=== PATIENT | female | born 1945 | race Caucasian/White ===

== ENCOUNTER → 2017-03-01 | Day surgery (SDC) | payer MEDICARE, OTHER ==
[2017-02-27 14:40] VITALS: BMI 26.8
[~2017-03-01] MED LIST: LACTATED RINGERS 1,000 ML IV SCH; LIDOCAINE 1% 20 ML VIAL (10MG/ML) FOR IV START INTRADERMA PRN; LIDOCAINE 1% INJ 10MG/ML (20 ML MDV) ONE; PROPOFOL 10 MG/ML 20 ML VIAL IV ONE
[2017-03-01 10:41] VITALS: RESP 16; TEMP 98.7
--- NOTE | 2017-03-01 11:35 | P.PCN ---
Date of Procedure: 03/01/17 Procedure(s) Performed: Brief history: Patient is a pleasant 71-year-old white female, scheduled for an elective upper endoscopy as well as colonoscopy as a part of evaluation of iron deficiency anemia. She has intermittent rectal bleeding and chronic severe constipation. Procedure performed: Esophagogastroduodenoscopy with biopsy Colonoscopy Preoperative diagnosis: Iron deficiency anemia and rectal bleeding Anesthesia: MAC Procedure: After informed consent was obtained from the patient was brought into the endoscopy unit and IV sedation was administered by anesthesia under continuous monitoring. Initially upper endoscopy was done. The Olympus GF 160 video endoscope was inserted inserted into the mouth and esophagus intubated without any difficulty and was gradually advanced into the stomach and duodenum and carefully examined. The bulb and second part of the duodenum appeared normal. The scope was then withdrawn into the stomach adequately insufflated with air and upon careful examination the pylorus appeared slightly deformed. In the antrum there was a 2 cm deep ulceration identified which was biopsied. The body , cardia and fundus appeared normal. The scope was then withdrawn into the esophagus. The GE junction was located at 40 cm to the incisors. It appeared regular with no erythema erosions or ulcerations. Rest of the esophagus appeared normal. Patient tolerated the procedure well. At this time the patient continued to remain sedation. Initial digital rectal examination was normal. Olympus CF 160 video colonoscope was then inserted into the rectum and gradually advanced to the cecum without any difficulty. Careful examination was performed as the scope was gradually being withdrawn. The prep was excellent. The cecum, ascending colon, transverse colon, descending colon, sigmoid colon and rectum appeared normal. At the sigmoid diverticulosis seen. Retroflexion was performed in the rectum and grade 2 prolapsing internal hemorrhoids were noted. Patient tolerated the procedure well. Impression: 1. Upper endoscopy revealed 2 cm deep antral ulcer with slightly deformed pylorus status post biopsy. 2. Colonoscopy revealed grade 2 prolapsing internal hemorrhoids and scattered sigmoid tic close is Recommendations: Findings of this examination were discussed with the patient as well as her family. She was advised to follow with the biopsy results. She was advised to increase the Prilosec to 20 mg twice daily and avoid NSAIDs. She will also continue the high-fiber diet and avoid straining and constipation.
[2017-03-01 12:01] VITALS: BP 117/73; PULSE 65
== END ==
LOC: ORWHC2ENDO 09:50
PROVIDERS: ATTEND Internal Medicine Gastroenterology
DX: K25.9 Gastric ulcer, unspecified as acute or chronic, without hemorrhage or perforation (principal); K29.50 Unspecified chronic gastritis without bleeding; K57.30 Diverticulosis of large intestine without perforation or abscess without bleeding; K64.8 Other hemorrhoids; I10 Essential (primary) hypertension; E78.5 Hyperlipidemia, unspecified; G47.33 Obstructive sleep apnea (adult) (pediatric); Z99.89 Dependence on other enabling machines and devices; Z87.891 Personal history of nicotine dependence; G80.9 Cerebral palsy, unspecified; M41.9 Scoliosis, unspecified; Z79.891 Long term (current) use of opiate analgesic; Z79.899 Other long term (current) drug therapy; Z88.8 Allergy status to other drugs, medicaments and biological substances
CPT/HCPCS: 88305; 88342; 45378; 43239; J2001; J2704

== ENCOUNTER → 2018-08-22 | Outpatient (CLI) | payer MEDICARE, OTHER ==
--- NOTE | 2018-08-25 13:48 | MM ---
Reason for exam: screening (asymptomatic). Last mammogram was performed 1 year and 10 months ago. History: Patient is postmenopausal and is nulliparous. Family history of breast cancer in sister at age 66. Physical Findings: A clinical breast exam by your physician is recommended on an annual basis and results should be correlated with mammographic findings. MG 3D Screening Mammo W/Cad Bilateral CC and MLO view(s) were taken. Prior study comparison: October 08, 2016, right breast MG 3d diag mammo w/cad RT. March 29, 2016, right breast MG work up mamm w CAD RT. There are scattered fibroglandular densities. There is a new 5mm group of right calcifications in the central inner breast at anterior depth. No suspicious abnormality on left. ASSESSMENT: Incomplete: need additional imaging evaluation, BI-RAD 0 RECOMMENDATION: Special view mammogram of the right breast. [facility] will attempt to contact patient to return for supplemental views.
== END | disposition home or self-care (01) ==
LOC: RADMAMWWP 13:03
PROVIDERS: ATTEND Internal Medicine
DX: Z12.31 Encounter for screening mammogram for malignant neoplasm of breast (principal)
CPT/HCPCS: 77063; 77067

== ENCOUNTER → 2018-08-29 | Outpatient (CLI) | payer MEDICARE, OTHER ==
--- NOTE | 2018-09-01 09:56 | MM ---
Reason for exam: additional evaluation requested from abnormal screening. Last mammogram was performed less than 1 month ago. History: Patient is postmenopausal and is nulliparous. Family history of breast cancer in sister at age 66. Physical Findings: Nurse did not find any significant physical abnormalities on exam. MG 3D Work Up W/Cad RT CC with magnification and LM view(s) were taken of the right breast. Prior study comparison: August 22, 2018, bilateral MG 3d screening mammo w/cad. October 08, 2016, right breast MG 3d diag mammo w/cad RT. There are indeterminate microcalcifications in the right breast. Biopsy is recommended. These results were verbally communicated with the patient and result sheet given to the patient on 08/29/18. ASSESSMENT: Suspicious, BI-RAD 4 RECOMMENDATION: Stereotactic core biopsy of the right breast. Called Dr. Padilla with mammographic findings and has scheduled an appointment for the patient for 10/03/18 at 10:[address] Moreira. Biopsy scheduled for 10/09/18 at 8:00. PRELIMINARY REPORT CALLED AND FAXED TO DR. MOREIRA ON 08/29/18.
== END | disposition home or self-care (01) ==
LOC: RADMAMWWP 14:25
PROVIDERS: ATTEND Internal Medicine
DX: R92.8 Other abnormal and inconclusive findings on diagnostic imaging of breast (principal)
CPT/HCPCS: 77065; G0279; 77061

== ENCOUNTER → 2018-09-19 | Outpatient (CLI) | payer MEDICARE, OTHER ==
[~2018-09-19] MED LIST changes: +DENOSUMAB 60 MG/ML 1 ML SYRINGE SQ ONE; -LACTATED RINGERS 1,000 ML IV SCH; -LIDOCAINE 1% 20 ML VIAL (10MG/ML) FOR IV START INTRADERMA PRN; -LIDOCAINE 1% INJ 10MG/ML (20 ML MDV) ONE; -PROPOFOL 10 MG/ML 20 ML VIAL IV ONE
[2018-09-19 13:11] VITALS: BP 161/85; PULSE 56; RESP 16; TEMP 97.6
== END ==
LOC: PROCWHC3 12:53
PROVIDERS: ATTEND Internal Medicine
DX: M81.0 Age-related osteoporosis without current pathological fracture (principal)
CPT/HCPCS: 96372; J0897

== ENCOUNTER → 2018-10-03 | Outpatient (CLI) | payer MEDICARE, OTHER ==
[2018-10-03 11:02] VITALS: BP 140/81; PULSE 60; RESP 18; TEMP 97.4; BMI 25.5
--- NOTE | 2018-10-03 11:36 | P.GSHP ---
History of Present Illness H&P Date: 10/03/18 Chief Complaint: abnormal right breast mamogram Shantel is a 72-year-old white female who presents with a mammographic abnormality noted in her right breast. Mammogram was done on 10181111. A new 5 mm group of right calcifications in the central inner breast were noted. No suspicious abnormalities on the left breast were noted. Additional views of the right breast were obtained which determined that the microcalcifications were indeterminant and a stereotactic core biopsy was recommended. The patient does not feel anything of concern in her breasts. The patient has no history of any trauma or infection to the breasts. Family history: 1. Breast cancer in a sister at age 66 Hormonal History: menarche: 12 : none menopause: 31 BCP: none hormones: none Past surgical history: Tonsil cataract Past Medical History: 1. 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 GERD 3. Hypertension 4. High cholesterol 5. Cerebral palsy 6. Scoliosis Social History: smoke: none alcohol: 2 wine/day drugs: Vicodin for back pain - Constitutional Constitutional: Denies chills, Denies fever - EENT Eyes: denies blurred vision, denies pain Ears: deny: decreased hearing, tinnitus Ears, nose, mouth and throat: Denies headache, Denies sore throat - Breasts Breasts: bilateral: as per HPI - Cardiovascular Comment: leaking valve (mitral valve prolapse) Cardiovascular: Reports high blood pressure - Respiratory Respiratory: Denies cough, Denies 7 - Gastrointestinal Comment: PUD Gastrointestinal: Denies abdominal pain, Denies diarrhea, Denies nausea, Denies vomiting - Genitourinary (Female) Genitourinary: Denies dysuria, Denies hematuria - Menstruation Menstruation: Reports postmenopausal - Musculoskeletal Comment: cerebral palsy - Integumentary Integumentary: Denies pruritus, Denies rash - Neurological Comment: arthritis Neurological: Reports numbness, Reports weakness - Psychiatric Psychiatric: Denies anxiety, Denies depression - Endocrine Endocrine: Denies fatigue, Denies weight change - Hematologic/Lymphatic Comment: aspirin - Allergic/Immunologic Allergic/Immunologic: Reports seasonal allergies Past Medical History Past Medical History: GERD/Reflux, Hyperlipidemia, Hypertension, Mitral Valve Prolapse (MVP), Osteoarthritis (OA) Additional Past Medical History / Comment(s): cerebral palsey, scolosis, BIPAP machine at HS (pt states she does not have sleep apnea, but uses the BIPAP with oxygen "because of my back." History of Any Multi-Drug Resistant Organisms: None Reported Past Surgical History: Tonsillectomy Additional Past Surgical History / Comment(s): earl cataract Past Anesthesia/Blood Transfusion Reactions: No Reported Reaction Past Psychological History: No Psychological Hx Reported Smoking Status: Former smoker Past Alcohol Use History: Occasional Additional Past Alcohol Use History / Comment(s): Smoked 1 PPD for 22yrs, quit in 1987. Past Drug Use History: None Reported - Past Family History Father Family Medical History: Coronary Artery Disease (CAD) Additional Family Medical History / Comment(s): at 76 Mother Family Medical History: Coronary Artery Disease (CAD) Additional Family Medical History / Comment(s): at 73 Sister(s) Family Medical History: Cancer Additional Family Medical History / Comment(s): Breast Cancer (mets to lung) at age 67 from pneumonia Medications and Allergies Home Medications Medication Instructions Recorded Confirmed Type Aspirin EC [Ecotrin] 81 mg PO DAILY 05/20/16 10/03/18 History Atorvastatin [Lipitor] 40 mg PO HS 05/20/16 10/03/18 History Biotin 5,000 mcg PO DAILY 05/20/16 10/03/18 History Calcium Carb/Vitamin D3/Vit K1 1 each PO BID 05/20/16 10/03/18 History [Viactiv Soft Chew Tablet] Carvedilol [Coreg] 12.5 mg PO BID 05/20/16 10/03/18 History Celecoxib [CeleBREX] 200 mg PO DAILY 05/20/16 10/03/18 History Docusate [Colace] 100 mg PO DAILY PRN 05/20/16 10/03/18 History Hydrocodone/Acetaminophen [[place] 1 tab PO TID PRN 05/20/16 10/03/18 History 5-325] Multivitamin/Iron/Folic Acid 1 each PO DAILY 05/20/16 10/03/18 History [Centrum Complete Multivit Tab] Omeprazole [PriLOSEC] 20 mg PO PC-SUPPER PRN 05/20/16 10/03/18 History Ubidecarenone [Co Q-10] 100 mg PO DAILY 05/20/16 10/03/18 History Acetaminophen [Tylenol Arthritis] 650 mg PO BID 02/27/17 10/03/18 History HYDROcodone/APAP 7.5-325MG [[place] 1 tab PO TID PRN 02/27/17 10/03/18 History 7.5-325] Lisinopril [Prinivil] 5 mg PO HS 02/27/17 10/03/18 History Loratadine-Pseudoeph 5-120 mg 1 each PO DAILY PRN 02/27/17 10/03/18 History [Claritin-D 12 HR] Allergies Allergy/AdvReac Type Severity Reaction Status Date / Time amlodipine besylate Allergy Rash/Hives Verified 09/19/18 13:07 [From Norvasc] simvastatin [From Zocor] Allergy legs hurt Verified 09/19/18 13:07 Surgical - Exam Vital Signs Temp Pulse Resp BP Pulse Ox 97.4 F L 60 18 140/81 98 10/03/18 10:42 10/03/18 10:42 10/03/18 10:42 10/03/18 10:42 10/03/18 10:42 BMI 25.5 - General well developed, well nourished, no distress - Eyes normal ocular movement - ENT no hearing loss, no congestion - Neck no masses, trachea midline - Respiratory normal respiratory effort, clear to auscultation - Cardiovascular Systolic ejection murmur Rhythm: regular Heart Sounds: normal: S1, S2 - Abdomen Abdomen: soft, non tender - Integumentary Right posterior neck for rash most likely consistent with shingles in the process of healing no growths, no abnormal pigmentation - Neurologic no disoriented, no combative - Musculoskeletal difficult with ambulation, scoliosis - Psychiatric oriented to time, oriented to person, oriented to place, speech is normal, memory intact Breast examination: Right breast: Multiple positional exam no dominant masses or nodules of concern Right axilla: No adenopathy of concern Left breast: Multi-positional exam of dominant mass or nodule is of concern Left axilla: No adenopathy of concern Results Mammogram results reviewed Assessment and Plan Assessment: Impression: 1. Right breast abnormal mammogram 2. Cerebral palsy 3. Hypertension 4. Systolic ejection murmur 5. GERD 6. Scoliosis 7. High cholesterol 8. Seasonal ALLERGIES Plan: 1. Stereotactic core biopsy right breast 2. Medical management of medical conditions Risk and benefits of the procedure been discussed with the patient. The patient has concerns that she would be able to lay prone on a stereotactic table and we are therefore going to try to schedule the procedure at [facility] on the upright stereotactic machine. This will be done in the near future. The patient will follow-up week later. Cc: DR. Padilla
== END ==
LOC: WWCWWP 10:13
PROVIDERS: ATTEND Surgery
DX: Z53.9 Procedure and treatment not carried out, unspecified reason (principal)

== ENCOUNTER → 2018-11-27 | Outpatient (CLI) | payer MEDICARE, OTHER ==
[2018-11-27 10:36] VITALS: BP 161/71; PULSE 61; RESP 18; BMI 25.7
[2018-11-27 10:54] VITALS: TEMP 95.6
--- NOTE | 2018-11-27 11:04 | P.PN ---
Subjective Progress Note Date: 11/27/18 Shantel is a 73-year-old white female who was noted to have a mammographic abnormality in her right breast. The mammogram was done on 336176. A new 5 mm group of right breast calcifications in the central inner breast were noted. No suspicious abnormalities in the left breast were noted. The [place] [address]. 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 The patient is recommended to undergo needle localization and excisional biopsy of the area. The patient is not complaining of anything after the procedure. Family history: Breast cancer in a sister at age 66 Hormonal history: Menarche: 12 Pregnancies: None Menopause: 31 control pills: None Hormones: None Past surgical history: Tonsillectomy Cataracts surgery Past medical history: 1. Leaking valve in her heart 2. GERD 3. Hypertension 4. High cholesterol 5. Cerebral palsy 6. Scoliosis Social history: Smoke: Negative Alcohol: 2 dustin per day Drugs: Vicodin for back pain Review of systems: HEENT negative for blurred vision or decreased hearing Breasts: As above Heart: Mitral valve prolapse high blood pressure Respiratory: Uses a BIPAP at night, secondary to the scoliosis when sleeping Musculoskeletal: Cerebral palsy GI: GERD : Negative Objective - Vital Signs Vital signs: Vital Signs Temp Pulse 61 11/27/18 10:33 Resp 18 11/27/18 10:33 BP 161/71 11/27/18 10:33 Pulse Ox 97 11/27/18 10:33 Intake & Output 11/26/18 11/27/18 11/27/18 18:59 06:59 18:59 Weight 53.977 kg - Constitutional General appearance: Present: average body habitus - EENT Eyes: Present: EOMI ENT: Present: hearing grossly normal - Respiratory Respiratory: bilateral: CTA - Cardiovascular Rhythm: regular - Gastrointestinal General gastrointestinal: Present: soft - Integumentary Integumentary Comment(s): Right breast: Puncture site from core biopsy clean and dry no evidence of infection, mild ecchymosis, no large hematoma - Musculoskeletal Musculoskeletal Comment(s): Scoliosis - Psychiatric Psychiatric: Present: A&O x's 3, appropriate affect, intact judgment & insight Assessment and Plan Assessment: Impression: 1. Right breast status post core biopsy atypia 2. Cerebral palsy 3. Hypertension 4. Systolic ejection murmur/mitral valve prolapse 5. GERD 6. Scoliosis 7. High cholesterol 8. Seasonal ALLERGIES Plan: 1. Medical clearance from Dr. Padilla for right breast needle localization and excisional biopsy 2. Medical clearance from cardiology 3. Needle localization excisional biopsy of area of concern in the right breast The cases been discussed with the patient and her . Risk and benefits of the procedure been discussed and she wishes to proceed. Dr. Padilla
== END | disposition home or self-care (01) ==
LOC: WWCWWP 09:06
PROVIDERS: ATTEND Surgery
DX: Z53.9 Procedure and treatment not carried out, unspecified reason (principal)

== ENCOUNTER 2018-12-23 06:43 | Day surgery (SDC) | payer MEDICARE, OTHER ==
[2018-12-19 12:29] VITALS: BMI 25.9
[2018-12-23] MEDS ORDERED: HEPARIN SODIUM,PORCINE 5,000 UNIT/ML 1 ML VIAL SQ ONE ×2 (07:00→09:13)
[2018-12-23] MEDS ORDERED: ALPRAZolam 0.25 MG TAB PO ONE (07:30)
[2018-12-23] MEDS ORDERED: LIDOCAINE 1% 20 ML VIAL (10MG/ML) FOR IV START INTRADERMA ONE (07:44)
[2018-12-23] MEDS ORDERED: LACTATED RINGERS 1,000 ML IV ONE (07:44)
[2018-12-23] MEDS ORDERED: SODIUM BICARB 4% 5 ML VIAL (0.48 MEQ/ML) MISCELLANE ONE (08:35)
[2018-12-23] MEDS ORDERED: LIDOCAINE 1% INJ 10MG/ML (20 ML MDV) SQ ONE (08:35)
[2018-12-23] MEDS ORDERED: ceFAZolin 2,000 MG in DEXTROSE/WATER 1 50ML.BAG IVPB STA (09:00)
[2018-12-23] MEDS ORDERED: ceFAZolin IN SWFI 2 GM/20 ML SYRINGE IVP STA (09:02)
[2018-12-23] MEDS ORDERED: PROPOFOL 10 MG/ML 20 ML VIAL IV ONE (09:04)
[2018-12-23] MEDS ORDERED: MIDAZOLAM 2 MG/2 ML VIAL ONE (09:04)
[2018-12-23] MEDS ORDERED: fentaNYL (PF) 50 MCG/ML 2 ML AMP ONE (09:04)
[2018-12-23] MEDS ORDERED: LIDOCAINE 1% INJ 10MG/ML (20 ML MDV) ONE (09:04)
[2018-12-23] MEDS ORDERED: ONDANSETRON 4 MG/2 ML VIAL IVP ONE (09:04)
[2018-12-23] MEDS ORDERED: DEXAMETHASONE SOD PHOSPHATE 4 MG/ML 1 ML VIAL IV ONE (09:04)
[2018-12-23] MEDS ORDERED: ePHEDrine SULFATE/0.9% NACL/PF 50 MG/5 ML SYRINGE IV ONE (09:04)
[2018-12-23] MEDS ORDERED: SODIUM CHLORIDE 0.9% 50 ML with ceFAZolin 1,000 MG IV ONE ×2 (09:24)
--- NOTE | 2018-12-23 10:08 | P.OP ---
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 The patient was recommended to undergo a needle localization and excisional biopsy of the area of concern. The patient was initially seen in the radiology department where needle localization of an area of concern was performed. The patient was then brought to the operating room. Following induction of general anesthesia the right breast was prepped and draped in a sterile fashion. A periareolar incision was made and carried down to the breast tissue. Dissection was carried medially to the shaft of the needle. This was grasped using a hemostat. An Allis clamp was used to grasp the tissue in proximity to this. Careful dissection circumferential to the needle was performed. Dissection was carried down very close to the pectoralis major muscle posteriorly. Wide excision of the area was performed. The specimen was removed and painted for orientation. The specimen was sent to radiology to confirm the area of concern about removed. After we were assured that hemostasis was attained titanium clips were placed to belem the area. The deep tissues were closed with 3-0 Vicryl suture. The skin was closed with a 4-0 Monocryl. Steri-Strips were applied. The patient tolerated the procedure in stable condition. All instrument and sponge counts were correct at the end of the case.
--- NOTE | 2018-12-23 10:11 | P.DS ---
Providers Attending physician: Rosemary Moreira Primary care physician: Constantino Padilla Plan - Discharge Summary Discharge Rx Participant: No New Discharge Prescriptions: No Action Ubidecarenone [Co Q-10] 100 mg PO DAILY Hydrocodone/Acetaminophen [[place] 5-325] 1 tab PO TID PRN PRN Reason: Pain Omeprazole [PriLOSEC] 20 mg PO PC-SUPPER PRN PRN Reason: Heartburn Aspirin EC [Ecotrin] 81 mg PO DAILY Celecoxib [CeleBREX] 200 mg PO DAILY Carvedilol [Coreg] 12.5 mg PO BID Atorvastatin [Lipitor] 40 mg PO HS Calcium Carb/Vitamin D3/Vit K1 [Viactiv Soft Chew Tablet] 1 each PO BID Multivitamin/Iron/Folic Acid [Centrum Complete Multivit Tab] 1 each PO DAILY Docusate [Colace] 100 mg PO DAILY PRN PRN Reason: Constipation Biotin 5,000 mcg PO DAILY Lisinopril [Prinivil] 5 mg PO HS HYDROcodone/APAP 7.5-325MG [[place] 7.5-325] 1 tab PO TID PRN PRN Reason: Pain Loratadine-Pseudoeph 5-120 mg [Claritin-D 12 HR] 1 each PO DAILY PRN PRN Reason: Allergy Symptoms Acetaminophen [Tylenol Arthritis] 650 mg PO BID Discharge Medication List Aspirin EC [Ecotrin] 81 mg PO DAILY 05/20/16 [History] Atorvastatin [Lipitor] 40 mg PO HS 05/20/16 [History] Biotin 5,000 mcg PO DAILY 05/20/16 [History] Calcium Carb/Vitamin D3/Vit K1 [Viactiv Soft Chew Tablet] 1 each PO BID [History] Carvedilol [Coreg] 12.5 mg PO BID 05/20/16 [History] Celecoxib [CeleBREX] 200 mg PO DAILY 05/20/16 [History] Docusate [Colace] 100 mg PO DAILY PRN 05/20/16 [History] Hydrocodone/Acetaminophen [[place] 5-325] 1 tab PO TID PRN 05/20/16 [History] Multivitamin/Iron/Folic Acid [Centrum Complete Multivit Tab] 1 each PO DAILY [History] Omeprazole [PriLOSEC] 20 mg PO PC-SUPPER PRN 05/20/16 [History] Ubidecarenone [Co Q-10] 100 mg PO DAILY 05/20/16 [History] Acetaminophen [Tylenol Arthritis] 650 mg PO BID 02/27/17 [History] HYDROcodone/APAP 7.5-325MG [[place] 7.5-325] 1 tab PO TID PRN 02/27/17 [History] Lisinopril [Prinivil] 5 mg PO HS 02/27/17 [History] Loratadine-Pseudoeph 5-120 mg [Claritin-D 12 HR] 1 each PO DAILY PRN 02/27/17 [ History] Follow up Appointment(s)/Referral(s): Rosemary Moreira MD [STAFF PHYSICIAN] - 1 Week Activity/Diet/Wound Care/Special Instructions: wear bra at all times unless showering may shower after 48 hours Discharge Disposition: HOME SELF-CARE
[2018-12-23 10:28] VITALS: TEMP 97
[2018-12-23 10:42] VITALS: RESP 16
--- NOTE | 2018-12-23 11:08 | MM ---
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 FINDINGS: The procedure of needle localization with wire placement and than surgical excision was exp lained to the patient. Benefits, alternatives, and risks were discussed. An informed consent was th en obtained. Preprocedural timeout was performed. The shortest pathway for procedure was chosen. Shortest pathway was medial collateral approach. The overlying skin was prepped and draped in usual sterile fashion. Lidocaine buffered with bicarbonate was used as anesthetic into the skin and subcutaneous tissue up to the level of area of concern. A 5 cm needle was used. It was placed via a medial lateral approach under mammographic guidance. Subse quent 90 degrees mammogram show the needle to be in satisfactory position relative to the targeted ar ea. At this point, wire was placed and the needle was withdrawn. The wire was fixed to patient's sk in. Images were marked for surgeon. The patient tolerated the procedure well without any immediate complication. The patient was kept in the radiology department for short stay after the procedure and then taken to surgery for surgical e xcision. Targeted calcifications and wire are identified in specimen mammogram. The patient was kep t in hospital for short stay after the procedure and then discharged home in stable condition. IMPRESSION: Successful, uncomplicated needle localization with wire placement and surgical excision o f the biopsy marker and guidewire in the right breast, full pathology results to follow.
[2018-12-23 11:25] VITALS: BP 148/83; PULSE 60
== END 2018-12-23 11:41 | disposition home or self-care (01) ==
LOC: OR 06:43
PROVIDERS: ATTEND Surgery
DX: N60.91 Unspecified benign mammary dysplasia of right breast (principal); N60.11 Diffuse cystic mastopathy of right breast; G80.9 Cerebral palsy, unspecified; I10 Essential (primary) hypertension; R01.1 Cardiac murmur, unspecified; I34.1 Nonrheumatic mitral (valve) prolapse; K21.9 Gastro-esophageal reflux disease without esophagitis; M41.9 Scoliosis, unspecified; E78.00 Pure hypercholesterolemia, unspecified; E78.5 Hyperlipidemia, unspecified; J30.2 Other seasonal allergic rhinitis; Z80.3 Family history of malignant neoplasm of breast; Z99.89 Dependence on other enabling machines and devices; Z79.1 Long term (current) use of non-steroidal anti-inflammatories (NSAID); Z79.82 Long term (current) use of aspirin; Z79.899 Other long term (current) drug therapy; Z88.8 Allergy status to other drugs, medicaments and biological substances
CPT/HCPCS: 88307; 76098; 19281; 19125; J2250; J1644; J1100; J2405; J2001; J3010; J0690; J2704

== ENCOUNTER → 2019-01-02 | Outpatient (CLI) | payer MEDICARE, OTHER ==
[2019-01-02 10:13] VITALS: BP 133/82; PULSE 57; RESP 18; BMI 25.9
--- NOTE | 2019-01-02 10:38 | P.PN ---
Progress Note - Text Progress Note Date: 01/02/19 Shantel is status post right breast needle local excisional biopsy of an area of atypia noted on a core biopsy. The patient's pathology reveals no DCIS but focal atypical ductal hyperplasia margins negative. The patient has no complaints postprocedure. Physical exam: Lungs: Clear Heart: Regular rate and rhythm Incision: Clean and dry no evidence of infection Impression: 1. Patient status post excisional biopsy results benign Plan: 1. Repeat right breast mammogram and physician exam in 6 months time CC: Dr. Padilla
== END ==
LOC: WWCWWP 09:45
PROVIDERS: ATTEND Surgery
DX: Z53.9 Procedure and treatment not carried out, unspecified reason (principal)

== ENCOUNTER → 2019-04-13 | Outpatient (CLI) | payer MEDICARE, OTHER ==
[~2019-04-13] MED LIST changes: +DENOSUMAB 60 MG/ML 1 ML SYRINGE SQ NR; -DENOSUMAB 60 MG/ML 1 ML SYRINGE SQ ONE
[2019-04-13 13:49] VITALS: BP 135/73; PULSE 52; RESP 16; TEMP 98
== END | disposition home or self-care (01) ==
LOC: PROCWHC3 13:23
PROVIDERS: ATTEND Internal Medicine
DX: M81.0 Age-related osteoporosis without current pathological fracture (principal)
CPT/HCPCS: 96372; J0897

== ENCOUNTER → 2019-07-13 | Outpatient (CLI) | payer MEDICARE, OTHER ==
--- NOTE | 2019-07-13 13:42 | MM ---
Reason for exam: follow-up at short interval from prior study. Last mammogram was performed 10 months ago. History: Patient is postmenopausal, has history of high-risk lesion on a previous biopsy at age 73, and is nulliparous. Family history of breast cancer in sister at age 66. High risk MG pre op needle loc RT of the right breast, December 23, 2018. Physical Findings: Nurse did not find any significant physical abnormalities on exam. MG 3D Diag Mammo W/Cad RT CC and MLO view(s) were taken of the right breast. Prior study comparison: August 29, 2018, right breast MG 3d work up w/cad RT. August 22, 2018, bilateral MG 3d screening mammo w/cad. There are scattered fibroglandular densities. There are surgical changes in the right breast, new from previous. There are benign appearing round calcifications in the right breast. Asymmetric breast tissue in the right breast is stable. There is no discrete abnormality. These results were verbally communicated with the patient and result sheet given to the patient on 07/13/19. ASSESSMENT: Benign, BI-RAD 2 RECOMMENDATION: Return to routine screening mammogram schedule for both breasts. Back on schedule.
== END ==
LOC: RADMAMWWP 13:01
PROVIDERS: ATTEND Surgery
DX: R92.8 Other abnormal and inconclusive findings on diagnostic imaging of breast (principal)
CPT/HCPCS: 77065; G0279; 77061

== ENCOUNTER → 2019-07-17 | Outpatient (CLI) | payer MEDICARE, OTHER ==
[2019-07-17 12:13] VITALS: BP 120/66; PULSE 50; RESP 18; TEMP 97.8; BMI 26.2
--- NOTE | 2019-07-17 12:42 | P.PN ---
Subjective Progress Note Date: 07/17/19 Shantel is a 72-year-old white female who presented in 2017 with a mammographic abnormality noted in her right breast. Mammogram was done on 10181111. A new 5 mm group of right calcifications in the central inner breast were noted. No suspicious abnormalities on the left breast were noted. Ad ditional views of the right breast were obtained which determined that the microcalcifications were indeterminant and a stereotactic core biopsy was recommended. Stereotactic core biopsy revealed atypia bordering on DCIS and resulted in a needle localization and an open biopsy on 12-23-28. Pathology revealed focal atypical hyperplasia, margins were negative. She was recommended to have a repeat mammogram of the right breast in 6 months. She has no complaints related to her breast at this time. She is not complaining of any masses nodules nipple discharge or skin changes. She she had a repeat right breast mammogram on 9918 this was felt to be benign BIRADS 2. Bilateral mammogram back on schedule is recommended. Family history: 1. Breast cancer in a sister at age 66 Hormonal History: menarche: 12 : none menopause: 31 BCP: none hormones: none Past surgical history: Tonsil cataract Open biopsy of the right breast Past Medical History: 1. Leaking heart valve 2. GERD 3. Hypertension 4. High cholesterol 5. Cerebral palsy 6. Scoliosis Social History: smoke: none alcohol: 2 wine/day drugs: Vicodin for back pain - Constitutional Constitutional: Denies chills, Denies fever - EENT Eyes: denies blurred vision, denies pain Ears: deny: decreased hearing, tinnitus Ears, nose, mouth and throat: Denies headache, Denies sore throat - Breasts Breasts: bilateral: as per HPI - Cardiovascular Comment: leaking valve (mitral valve prolapse) Cardiovascular: Reports high blood pressure - Respiratory Respiratory: Denies cough - Gastrointestinal Comment: PUD, GERD reflux Gastrointestinal: Denies abdominal pain, Denies diarrhea, Denies nausea, Denies vomiting - Genitourinary (Female) Genitourinary: Denies dysuria, Denies hematuria - Menstruation Menstruation: Reports postmenopausal - Musculoskeletal Comment: cerebral palsy - Integumentary Integumentary: Denies pruritus, Denies rash - Neurological Comment: arthritis Neurological: Reports numbness, Reports weakness - Psychiatric Psychiatric: Denies anxiety, Denies depression - Endocrine Endocrine: Denies fatigue, Denies weight change - Hematologic/Lymphatic Comment: aspirin - Allergic/Immunologic Allergic/Immunologic: Reports seasonal allergies Past Medical History Past Medical History: GERD/Reflux, Hyperlipidemia, Hypertension, Mitral Valve Prolapse (MVP), Osteoarthritis (OA) Additional Past Medical History / Comment(s): cerebral palsey, scolosis, BIPAP machine at HS (pt states she does not have sleep apnea, but uses the BIPAP with oxygen "because of my back." History of Any Multi-Drug Resistant Organisms: None Reported Past Surgical History: Tonsillectomy Additional Past Surgical History / Comment(s): earl cataract Past Anesthesia/Blood Transfusion Reactions: No Reported Reaction Past Psychological History: No Psychological Hx Reported Smoking Status: Former smoker Past Alcohol Use History: Occasional Additional Past Alcohol Use History / Comment(s): Smoked 1 PPD for 22yrs, quit in 1987. Past Drug Use History: None Reported - Past Family History Father Family Medical History: Coronary Artery Disease (CAD) Additional Family Medical History / Comment(s): at 76 Mother Family Medical History: Coronary Artery Disease (CAD) Additional Family Medical History / Comment(s): at 73 Objective - Vital Signs Vital signs: Vital Signs Temp 97.8 F 07/17/19 12:10 Pulse 50 L 07/17/19 12:10 Resp 18 07/17/19 12:10 BP 120/66 07/17/19 12:10 Pulse Ox 100 07/17/19 12:10 Intake & Output 07/16/19 07/17/19 07/17/19 18:59 06:59 18:59 Weight 54.885 kg - Exam BMI 26.2 - Constitutional General appearance: Present: average body habitus - EENT Eyes: Present: EOMI ENT: Present: hearing grossly normal - Respiratory Respiratory: bilateral: CTA - Cardiovascular Rhythm: regular Heart sounds: normal: S1, S2 Abnormal Heart Sounds: Present: systolic murmur - Gastrointestinal General gastrointestinal: Present: soft - Integumentary Integumentary: Present: normal turgor - Musculoskeletal Musculoskeletal Comment(s): kyphosis, scoliosis - Psychiatric Psychiatric: Present: A&O x's 3, appropriate affect, intact judgment & insight - Additional findings Additional findings: Breast examination: Right breast: Well-healed scar from prior biopsy Multiple positional exam no dominant masses or nodules of concern Right axilla: No adenopathy of concern Left breast: Multiple positional exam no dominant masses or nodules of concern Left axilla: No adenopathy of concern Assessment and Plan Assessment: Impression: 1. Patient status post right breast open biopsy for atypia found on a stereotactic biopsy approximately 10 months ago, pathology showed atypia with negative margins 2. Cerebral palsy 3. Hypertension 4. Systolic ejection murmur 5. GERD 6. Scoliosis 7. High cholesterol 8. Seasonal ALLERGIES Plan: 1. Left breast biopsy to be back on schedule August 2019 2. If left breast mammogram is benign repeat bilateral mammogram in 1 year with physician exam at that time 3. Medical management of medical conditions Cc: Dr. Padilla
== END | disposition home or self-care (01) ==
LOC: WWCWWP 11:44
PROVIDERS: ATTEND Surgery
DX: Z53.9 Procedure and treatment not carried out, unspecified reason (principal)

== ENCOUNTER 2019-08-05 11:59 | Day surgery (SDC) | payer MEDICARE, OTHER ==
[2019-08-04 08:40] VITALS: BMI 26.2
[~2019-08-05 11:59] MED LIST changes: -DENOSUMAB 60 MG/ML 1 ML SYRINGE SQ NR; +DEXAMETHASONE SOD PHOSPHATE 10 MG/ML 1 ML VIAL IV ONE; +LACTATED RINGERS 1,000 ML IV SCH; +LIDOCAINE 1% 20 ML VIAL (10MG/ML) FOR IV START INTRADERMA PRN; +MIDAZOLAM 2 MG/2 ML VIAL IV PRN; +fentaNYL (PF) 50 MCG/ML 2 ML AMP IV PRN
[2019-08-05 13:28] VITALS: TEMP 97.6
[2019-08-05] MEDS ORDERED: LIDOCAINE 1% INJ 10MG/ML (20 ML MDV) ONE (14:07)
[2019-08-05] MEDS ORDERED: PROPOFOL 10 MG/ML 20 ML VIAL IV ONE (14:07)
--- NOTE | 2019-08-05 14:17 | P.PCN ---
Date of Procedure: 08/05/19 Procedure(s) Performed: BRIEF HISTORY: Patient is a 73-year-old, pleasant, female, scheduled for an upper endoscopy as part of evaluation of anemia and intermittent black tarry stools. She had EGD and colonoscopy done 2 years ago and was noted to have a 2 cm antral ulcer.. PROCEDURE PERFORMED: Esophagogastroduodenoscopy with biopsy. PREOPERATIVE DIAGNOSIS: Anemia and melena. IV sedation per anesthesia. PROCEDURE: After informed consent was obtained, the patient was brought into the endoscopy unit. IV sedation was administered by Anesthesia under continuous monitoring. Initially the Olympus GIF-140 video endoscope was inserted into the mouth. Esophagus intubated without any difficulty. It was gradually advanced into the stomach and duodenum and carefully examined. The bulb and the second part of the duodenum appeared normal. The scope at this time was withdrawn to the stomach, adequately insufflated with air, and upon careful examination, mucosa of the antrum, body, cardia and the fundus appeared normal. The previously noted antral ulcer has completely healed. She had few polyps in the gastric body which were biopsied. The scope was then withdrawn into the esophagus. The GE junction was located at 36 cm from the incisors. The esophagus appeared normal. There were no erosions or ulcerations seen and the patient tolerated the procedure well. IMPRESSION: 1. Small gastric polyps. 2. Previously noted antral ulcer has completely healed. RECOMMENDATIONS: The findings of this examination were discussed with the patient as well as a family. She was advised to follow with the biopsy results..
[2019-08-05 14:24] VITALS: RESP 16
[2019-08-05 14:47] VITALS: BP 139/61; PULSE 59
--- NOTE | 2019-08-11 11:17 | CDI ---
Date: 08.11.19 CDS/Cloth Classer Name: Jody Bermudez Phone: If any questions, call Bekah Elies Dicer Machine Operator at [phone] Patient Name: Shantel Snyder Admit Date: 08.05.19 Discharge Date: 08.05.19 ATTENTION: The [facility] Coding Staff appreciate your assistance in clarifying documentation. Please respond to the clarification below the line at the bottom and electronically sign. The [facility] Coding staff will review the response and follow-up if needed. Please note: Queries are made part of the Legal Health Record. If you have any questions, please contact the Dicer Machine Operator. Dear The path report mentions a biopsy of the duodenum, but there is not mention of it in your Procedure report. The only biopsy mentioned in your procedure report is of the gastric body. Thank you for your kind consideration. MTDD
--- NOTE | 2019-08-13 10:00 | CDI ---
Date: 08.13.19 CDS/Supervisor [place] Name: Jody Bermudez Phone: If any questions, call Bekah Elise [employer] Piping Designer at [phone] Patient Name: Shantel Snyder Admit Date: 08.05.19 Discharge Date: 08.05.19 ATTENTION: The [facility] Coding Staff appreciate your assistance in clarifying documentation. Please respond to the clarification below the line at the bottom and electronically sign. The [facility] Coding staff will review the response and follow-up if needed. Please note: Queries are made part of the Legal Health Record. If you have any questions, please contact the [employer] Piping Designer. Dear The path report mentions a biopsy of the duodenum, but there is not mention of it in your Procedure report. The only biopsy mentioned in your procedure report is of the gastric body. Thank you for your kind consideration. Biopsies were done in the duodenum ro r/o celiac disease kathryn Reyes
== END 2019-08-05 15:04 | disposition home or self-care (01) ==
LOC: ORWHC2ENDO 11:59
PROVIDERS: ATTEND Internal Medicine Gastroenterology
DX: K31.7 Polyp of stomach and duodenum (principal); D64.9 Anemia, unspecified; K92.1 Melena; I10 Essential (primary) hypertension; E78.5 Hyperlipidemia, unspecified; G80.9 Cerebral palsy, unspecified; M41.9 Scoliosis, unspecified; K21.9 Gastro-esophageal reflux disease without esophagitis; Z88.8 Allergy status to other drugs, medicaments and biological substances; Z79.899 Other long term (current) drug therapy; Z79.1 Long term (current) use of non-steroidal anti-inflammatories (NSAID); Z79.891 Long term (current) use of opiate analgesic; Z87.11 Personal history of peptic ulcer disease; Z98.42 Cataract extraction status, left eye; Z98.41 Cataract extraction status, right eye; Z90.89 Acquired absence of other organs; Z98.890 Other specified postprocedural states
CPT/HCPCS: 88305; 43239; J2001; J2704

== ENCOUNTER → 2019-08-25 | Outpatient (CLI) | payer MEDICARE, OTHER ==
--- NOTE | 2019-08-25 13:58 | MM ---
Reason for exam: additional evaluation requested from prior study. Last mammogram was performed 1 month ago. History: Patient is postmenopausal, has history of high-risk lesion on a previous biopsy at age 73, and is nulliparous. Family history of breast cancer in sister at age 66. High risk MG pre op needle loc RT of the right breast, December 23, 2018. Physical Findings: Nurse did not find any significant physical abnormalities on exam. MG 3D Diag Mammo W/Cad LT CC and MLO view(s) were taken of the left breast. Prior study comparison: July 13, 2019, right breast MG 3d diag mammo w/cad RT. August 29, 2018, right breast MG 3d work up w/cad RT. There are scattered fibroglandular densities. Benign appearing calcifications in the left breast. No suspicious abnormality. No significant new findings when compared with previous films. These results were verbally communicated with the patient and result sheet given to the patient on 08/25/19. ASSESSMENT: Benign, BI-RAD 2 RECOMMENDATION: Routine screening mammogram of both breasts in 1 year.
== END | disposition home or self-care (01) ==
LOC: RADMAMWWP 12:52
PROVIDERS: ATTEND Surgery
DX: R92.8 Other abnormal and inconclusive findings on diagnostic imaging of breast (principal)
CPT/HCPCS: 77065; G0279; 77061

== ENCOUNTER → 2019-09-11 | Outpatient (CLI) | payer MEDICARE, OTHER ==
[2019-09-11 12:49] VITALS: BP 159/83; PULSE 61; RESP 18; TEMP 97.5; BMI 25.9
--- NOTE | 2019-09-11 13:20 | P.PN ---
Progress Note - Text Progress Note Date: 09/11/19 Progress Note Date: Patient is status post right breast biopsy in August of 2018. This revealed atypia bordering on DCIS resolving needle localization and open biopsy. In December 2018 open biopsy was performed, Pathology revealed focal atypical hyperplasia and margins were negative. Shantel is a 72-year-old white female who presented in 2017 with a mammographic abnormality noted in her right breast. Mammogram was done on 10181111. A new 5 mm group of right calcifications in the central inner breast were noted. No suspicious abnormalities on the left breast were noted. Additional views of the right breast were obtained which determined that the microcalcifications were indeterminant and a stereotactic core biopsy was recommended. Stereotactic core biopsy revealed atypia bordering on DCIS and resulted in a needle localization and an open biopsy on 12-23-18. Pathology revealed focal atypical hyperplasia, margins were negative. She was recommended to have a repeat mammogram of the right breast in 6 months. She has no complaints related to her breast at this time. She is not complaining of any masses nodules nipple discharge or skin changes. She she had a repeat right breast mammogram on 9918 this was felt to be benign BIRADS 2. Bilateral mammogram back on schedule is recommended. The patient had a left breast mammogram on [id number]. This was benign BIRADS 2. The patient has now had both of her breast mammograms done with in approximately a month and a half of each other. The patient will get bilateral mammogram next year in August so that she is back on schedule. At this time she has no complaints related to either breast. She was most recently seen in her breasts were examined in July 2019. Family history: 1. Breast cancer in a sister at age 66 Hormonal History: menarche: 12 : none menopause: 31 BCP: none hormones: none Past surgical history: Tonsil cataract Open biopsy of the right breast Past Medical History: 1. Leaking heart valve 2. GERD 3. Hypertension 4. High cholesterol 5. Cerebral palsy 6. Scoliosis Social History: smoke: none alcohol: 2 wine/day drugs: Vicodin for back pain - Constitutional Constitutional: Denies chills, Denies fever - EENT Eyes: denies blurred vision, denies pain Ears: deny: decreased hearing, tinnitus Ears, nose, mouth and throat: Denies headache, Denies sore throat - Breasts Breasts: bilateral: as per HPI - Cardiovascular Comment: leaking valve (mitral valve prolapse) Cardiovascular: Reports high blood pressure - Respiratory Respiratory: Denies cough - Gastrointestinal Comment: PUD, GERD reflux Gastrointestinal: Denies abdominal pain, Denies diarrhea, Denies nausea, Denies vomiting - Genitourinary (Female) Genitourinary: Denies dysuria, Denies hematuria - Menstruation Menstruation: Reports postmenopausal - Musculoskeletal Comment: cerebral palsy - Integumentary Integumentary: Denies pruritus, Denies rash - Neurological Comment: arthritis Neurological: Reports numbness, Reports weakness - Psychiatric Psychiatric: Denies anxiety, Denies depression - Endocrine Endocrine: Denies fatigue, Denies weight change - Hematologic/Lymphatic Comment: aspirin - Allergic/Immunologic Allergic/Immunologic: Reports seasonal allergies Past Medical History Past Medical History: GERD/Reflux, Hyperlipidemia, Hypertension, Mitral Valve Prolapse (MVP), Osteoarthritis (OA) Additional Past Medical History / Comment(s): cerebral palsey, scolosis, BIPAP machine at HS (pt states she does not have sleep apnea, but uses the BIPAP with oxygen "because of my back." History of Any Multi-Drug Resistant Organisms: None Reported Past Surgical History: Tonsillectomy Additional Past Surgical History / Comment(s): earl cataract Past Anesthesia/Blood Transfusion Reactions: No Reported Reaction Past Psychological History: No Psychological Hx Reported Smoking Status: Former smoker Past Alcohol Use History: Occasional Additional Past Alcohol Use History / Comment(s): Smoked 1 PPD for 22yrs, quit in 1987. Past Drug Use History: None Reported - Past Family History Father Family Medical History: Coronary Artery Disease (CAD) Additional Family Medical History / Comment(s): at 76 Mother Family Medical History: Coronary Artery Disease (CAD) Additional Family Medical History / Comment(s): at 73 Impression/Plan: 1. Bilateral fibrocystic breast changes 2. Bilateral mammograms done the right in July 2019 in the left in August 2019 did not reveal any lesions of concern 3. Bilateral mammogram in 1 year with repeat physician exam at that time 4. Patient is anything of concern she will call us sooner CC: Dr. Padilla
== END | disposition home or self-care (01) ==
LOC: WWCWWP 12:37
PROVIDERS: ATTEND Surgery
DX: Z53.9 Procedure and treatment not carried out, unspecified reason (principal)

== ENCOUNTER → 2019-11-10 | Outpatient (CLI) | payer MEDICARE, OTHER ==
[~2019-11-10] MED LIST changes: +DENOSUMAB 60 MG/ML 1 ML SYRINGE SQ NR; -DEXAMETHASONE SOD PHOSPHATE 10 MG/ML 1 ML VIAL IV ONE; -LACTATED RINGERS 1,000 ML IV SCH; -LIDOCAINE 1% 20 ML VIAL (10MG/ML) FOR IV START INTRADERMA PRN; -MIDAZOLAM 2 MG/2 ML VIAL IV PRN; -fentaNYL (PF) 50 MCG/ML 2 ML AMP IV PRN
[2019-11-10 14:08] VITALS: BP 172/85; PULSE 61; RESP 16; TEMP 97.8
== END | disposition home or self-care (01) ==
LOC: PROCWHC3 12:44
PROVIDERS: ATTEND Internal Medicine
DX: M81.0 Age-related osteoporosis without current pathological fracture (principal)
CPT/HCPCS: 96372; J0897

== ENCOUNTER 2019-12-29 12:28 | Emergency (ER) | payer MEDICARE, OTHER ==
[2019-12-29 12:56] VITALS: BP 179/92; PULSE 66; RESP 20; TEMP 97.8
[2019-12-29] MEDS ORDERED: LIDOCAINE/EPINEPHR/TETRACAINE 5 ML BOTTLE TOPICAL ONE (13:34)
--- NOTE | 2019-12-29 13:54 | ED ---
Fall HPI - General Chief Complaint: Fall Stated Complaint: Fall, head injury Time Seen by Provider: 12/29/19 13:23 Source: patient, family, RN notes reviewed Mode of arrival: wheelchair Limitations: no limitations - History of Present Illness Initial Comments: 74-year-old female presents emergency Department with chief complaint of fall, head injury. Patient states that she Lost her balance tripped and fell striking her head on the bedpost. There was no loss conscious. Patient states her tetanus is up-to-date. She states it is small laceration that she notably has a very minimal to no headache. Patient states she does not take any blood thinners and states that she does not take any current aspirin. Patient denies neck pain, extremity injury. Patient offers no other complaints. - Related Data Home Medications Medication Instructions Recorded Confirmed Atorvastatin [Lipitor] 40 mg PO HS 05/20/16 11/10/19 Biotin 5,000 mcg PO AC-LUNCH 05/20/16 11/10/19 Carvedilol [Coreg] 12.5 mg PO BID 05/20/16 11/10/19 Celecoxib [CeleBREX] 200 mg PO QAM 05/20/16 11/10/19 Docusate [Colace] 100 mg PO DAILY PRN 05/20/16 11/10/19 Hydrocodone/Acetaminophen [Asher 1 tab PO TID PRN 05/20/16 11/10/19 5-325] Multivitamin/Iron/Folic Acid 1 each PO AC-LUNCH 05/20/16 11/10/19 [Centrum Complete Multivit Tab] Omeprazole [PriLOSEC] 20 mg PO QAM 05/20/16 11/10/19 Ubidecarenone [Co Q-10] 100 mg PO BID 05/20/16 11/10/19 Acetaminophen [Tylenol Arthritis] 650 mg PO BID 02/27/17 11/10/19 Lisinopril [Prinivil] 5 mg PO HS 02/27/17 11/10/19 Cyanocobalamin (Vitamin B-12) 5,000 mcg PO AC-LUNCH 01/02/19 11/10/19 [Vitamin B-12] Denosumab [Prolia] 60 mg SQ DIRECTED 01/02/19 11/10/19 Montelukast [Singulair] 10 mg PO QAM 07/17/19 11/10/19 cycloSPORINE [Restasis] 1 applicator BOTH EYES BID 07/17/19 11/10/19 Calcium Carbonate/Vitamin D3 1 each PO AC-LUNCH 08/04/19 11/10/19 [Calcium 500-Vit D3 600 Tablet] Allergies Allergy/AdvReac Type Severity Reaction Status Date / Time amlodipine besylate Allergy Rash/Hives Verified 12/29/19 12:56 [From Norvasc] simvastatin [From Zocor] Allergy legs hurt Verified 12/29/19 12:56 Review of Systems ROS Statement: Those systems with pertinent positive or pertinent negative responses have been documented in the HPI. ROS Other: All systems not noted in ROS Statement are negative. Past Medical History Past Medical History: GERD/Reflux, Hyperlipidemia, Hypertension, Mitral Valve Prolapse (MVP), Osteoarthritis (OA) Additional Past Medical History / Comment(s): cerebral palsy, scoliosis, BIPAP machine at HS (pt states she does not have sleep apnea, but uses the BIPAP with oxygen "because of my back." History of Any Multi-Drug Resistant Organisms: None Reported Past Surgical History: Breast Surgery, Tonsillectomy Additional Past Surgical History / Comment(s): earl cataract, COLONOSCOPY, lumpectomy lt breast Past Anesthesia/Blood Transfusion Reactions: No Reported Reaction Past Psychological History: No Psychological Hx Reported Smoking Status: Former smoker Past Alcohol Use History: Daily Past Drug Use History: None Reported - Past Family History Father Family Medical History: Coronary Artery Disease (CAD) Additional Family Medical History / Comment(s): at 76 Mother Family Medical History: Coronary Artery Disease (CAD) Additional Family Medical History / Comment(s): at 73 Sister(s) Family Medical History: Cancer Additional Family Medical History / Comment(s): Breast Cancer (mets to lung) at age 67 from pneumonia General Exam Limitations: no limitations General appearance: alert, in no apparent distress Head exam: Present: atraumatic, normocephalic. Absent: normal inspection (2 cm laceration on the occipital region) Eye exam: Present: normal appearance, PERRL, EOMI. Absent: scleral icterus, conjunctival injection, periorbital swelling ENT exam: Present: normal exam, normal oropharynx, mucous membranes moist Neck exam: Present: normal inspection, full ROM. Absent: tenderness, meningismus, lymphadenopathy Respiratory exam: Present: normal lung sounds bilaterally. Absent: respiratory distress, wheezes, rales, rhonchi, stridor Cardiovascular Exam: Present: regular rate, normal rhythm, normal heart sounds. Absent: systolic murmur, diastolic murmur, rubs, gallop, clicks GI/Abdominal exam: Present: soft, normal bowel sounds. Absent: distended, tenderness, guarding, rebound, rigid Neurological exam: Present: alert, oriented X3, CN II-XII intact, reflexes n ormal. Absent: motor sensory deficit Skin exam: Present: warm, dry, intact, normal color. Absent: rash Course Vital Signs 12/29/19 12:52 Temperature 97.8 F Pulse Rate 66 Respiratory 20 Rate Blood Pressure 179/92 O2 Sat by Pulse 99 Oximetry Procedures - Laceration Laceration #1 Consent Obtained: verbal consent Indication: laceration Site: scalp Size (cm): 2 Description: linear Depth: simple, single layer Pre-repair: wound explored, irrigated extensively, deep structures intact Type of Sutures: other (Dermal rogers) Number of Sutures: 3 Patient Tolerated Procedure: well, no complications Medical Decision Making - Medical Decision Making Patient CT of brain, C-spine did not show an acute abnormality's. There is some chronic old changes. Patient discharged in stable condition return parameters were discussed. Disposition Clinical Impression: Fall, Scalp laceration, Head injury Disposition: HOME SELF-CARE Condition: Stable Instructions (If sedation given, give patient instructions): Head Injury (ED), Staple Care (ED) Additional Instructions: Have rogers removed in 10 days.Please return to the Emergency Department if symptoms worsen or any other concerns. Is patient prescribed a controlled substance at d/c from ED?: No Referrals: Constantino Padilla MD [Primary Care Provider] - 1-2 days Time of Disposition: 15:05
--- NOTE | 2019-12-29 14:43 | CT ---
EXAMINATION TYPE: CT brain delroy stanley con DATE OF EXAM: 12/29/2019 COMPARISON: None HISTORY: 74-year-old female pain after Fall, head injury CT DLP: 1380.8 mGycm Automated exposure control for dose reduction was used. Technique: Examination of the head was done in axial plane without intravenous contrast. Coronal and sagittal reconstructions performed. CT of the cervical spine was obtained in axial plane without intravenous injection of contrast mater ial. Coronal and sagittal reformatted images were obtained from the axial views for evaluation of f ractures, spinal alignment and canal. FINDINGS: Head: There is no evidence of acute intracranial hemorrhage, acute ischemic changes, mass, mass-effect, or extra-axial fluid collection. There is no effacement of cerebral sulci or basal subarachnoid cister ns. There is no hydrocephalus. There is no midline shift. Pritchard-white matter distinction is preserv ed. Mild to moderate cerebral cortical atrophy. Moderate cerebellar atrophy. Slight rightward nasal septal deviation. Paranasal sinuses and mastoid air cells are well pneumatized . Orbits and globes are intact. Cervical spine: Ectatic appearance of the thoracic aorta. Measurements do not indicate the presence of aneurysm. No craniocervical junction abnormality. Predental space widening, or prevertebral soft tissue swellin g. Accentuated upper to mid cervical lordosis. Hypertrophic facet and uncovertebral joint arthropathy. Moderate to advanced degenerative disc disease C5-C7 and T1-T2. Grade 1 anterolisthesis at C4-C5 and C7-T1. No acute fracture of the cervical spine. Old healed left-sided rib fracture deformities incidentally noted Levoconvex scoliosis noted within the thoracic spine. Sagittal and coronal reformatted images confirm above findings. COMBINED IMPRESSION: 1. [id number] cerebral cortical atrophy and moderate cerebellar atrophy. No acute intracranial abnormal body seen. 2. Thoracic scoliosis. Accentuated cervical lordosis. Moderate multilevel spondylotic change with deg enerative grade 1 anterolisthesis at C4-C5 and C7-T1. No acute fracture of the cervical spine.
== END 2019-12-29 15:13 | disposition home or self-care (01) ==
LOC: EC 12:28
DX: S01.01XA Laceration without foreign body of scalp, initial encounter (principal); K21.9 Gastro-esophageal reflux disease without esophagitis; E78.5 Hyperlipidemia, unspecified; I10 Essential (primary) hypertension; I34.1 Nonrheumatic mitral (valve) prolapse; M19.90 Unspecified osteoarthritis, unspecified site; Z87.891 Personal history of nicotine dependence; Z79.1 Long term (current) use of non-steroidal anti-inflammatories (NSAID); Z79.891 Long term (current) use of opiate analgesic; Z79.899 Other long term (current) drug therapy; Z88.8 Allergy status to other drugs, medicaments and biological substances; W01.190A Fall on same level from slipping, tripping and stumbling with subsequent striking against furniture, initial encounter; Y92.003 Bedroom of unspecified non-institutional (private) residence as the place of occurrence of the external cause
CPT/HCPCS: 12001; 70450; 72125; 99283

== ENCOUNTER → 2020-07-01 | Outpatient (CLI) | payer MEDICARE, OTHER ==
[2020-07-01 11:49] VITALS: BP 112/68; PULSE 64; RESP 20; TEMP 97.8
== END | disposition home or self-care (01) ==
LOC: PROCWHC3 11:18
PROVIDERS: ATTEND Internal Medicine
DX: M81.0 Age-related osteoporosis without current pathological fracture (principal)
CPT/HCPCS: 96372; J0897

== ENCOUNTER 2020-08-21 22:06 | Inpatient (IN) | payer MEDICARE, OTHER ==
[2020-08-21] MEDS ORDERED: ASPIRIN 81 MG PO STA (22:27)
[2020-08-21] MEDS ORDERED: NITROGLYCERIN SL TABS 0.4 MG TAB SUBLINGUAL PRN ×2 (22:35→23:57)
--- NOTE | 2020-08-21 22:35 | ED ---
Chest Pain HPI - General Chief Complaint: Chest Pain Stated Complaint: Chest Pain Time Seen by Provider: 08/21/20 22:27 Source: patient Mode of arrival: wheelchair Limitations: no limitations - History of Present Illness Initial Comments: Shantel is a 74-year-old female that extensive past medical history cerebral palsy and scoliosis who presents the ER today for evaluation of chest pain that began at rest. Patient reports her on a p.m. she is watching TV when she developed pressure-like chest pain she reports feeling like there is a weight in her chest and that she can't catch her breath. She denies any associated fevers chills, diaphoresis, lightheadedness. She denies any recent illness. - Related Data Home Medications Medication Instructions Recorded Confirmed Atorvastatin [Lipitor] 40 mg PO HS 05/20/16 08/21/20 Biotin 5,000 mcg PO AC-LUNCH 05/20/16 08/21/20 Carvedilol [Coreg] 12.5 mg PO BID 05/20/16 08/21/20 Celecoxib [CeleBREX] 200 mg PO QAM 05/20/16 08/21/20 Docusate [Colace] 100 mg PO DAILY PRN 05/20/16 08/21/20 Hydrocodone/Acetaminophen [[place] 1 tab PO Q6H PRN 05/20/16 08/21/20 5-325] Multivitamin/Iron/Folic Acid 1 each PO AC-LUNCH 05/20/16 08/21/20 [Centrum Complete Multivit Tab] Omeprazole [PriLOSEC] 20 mg PO QAM 05/20/16 08/21/20 Ubidecarenone [Co Q-10] 200 mg PO DAILY 05/20/16 08/21/20 Acetaminophen [Tylenol Arthritis] 650 mg PO BID 02/27/17 08/21/20 Lisinopril [Prinivil] 5 mg PO HS 02/27/17 08/21/20 Cyanocobalamin (Vitamin B-12) 5,000 mcg PO AC-LUNCH 01/02/19 08/21/20 [Vitamin B-12] Denosumab [Prolia] 60 mg SQ DIRECTED 01/02/19 08/21/20 Montelukast [Singulair] 10 mg PO QAM 07/17/19 08/21/20 cycloSPORINE [Restasis] 1 applicator BOTH EYES BID 07/17/19 08/21/20 Calcium Carbonate/Vitamin D3 1 tab PO AC-LUNCH 08/04/19 08/21/20 [Calcium 500-Vit D3 600 Tablet] Olopatadine HCl [Patanase] 2 spray NASAL BID 08/21/20 08/21/20 Allergies Allergy/AdvReac Type Severity Reaction Status Date / Time amlodipine besylate Allergy Rash/Hives Verified 08/21/20 23:01 [From Norvasc] simvastatin [From Zocor] Allergy legs hurt Verified 08/21/20 23:01 Review of Systems ROS Statement: Those systems with pertinent positive or pertinent negative responses have been documented in the HPI. ROS Other: All systems not noted in ROS Statement are negative. EKG Findings - EKG Comments: EKG Findings:: EKG was obtained due to complaint of chest pain, EKG obtained at 2224, rate is 72 rhythm is sinus there is a normal axis, normal intervals, [place] 136, QRS 80, QTC [address] elevations or depressions no evidence of acute ischemia or infarction. PACs are noted. Past Medical History Past Medical History: GERD/Reflux, Hyperlipidemia, Hypertension, Mitral Valve Prolapse (MVP), Osteoarthritis (OA) Additional Past Medical History / Comment(s): cerebral palsy, scoliosis, BIPAP machine at [facility] (pt states she does not have sleep apnea, but uses the BIPAP with oxygen "because of my back." History of Any Multi-Drug Resistant Organisms: None Reported Past Surgical History: Breast Surgery, Tonsillectomy Additional Past Surgical History / Comment(s): earl cataract, COLONOSCOPY, lumpectomy lt breast Past Anesthesia/Blood Transfusion Reactions: No Reported Reaction Past Psychological History: No Psychological Hx Reported Smoking Status: Former smoker Past Alcohol Use History: Daily Past Drug Use History: None Reported - Past Family History Father Family Medical History: Coronary Artery Disease (CAD) Additional Family Medical History / Comment(s): at 76 Mother Family Medical History: Coronary Artery Disease (CAD) Additional Family Medical History / Comment(s): at 73 Sister(s) Family Medical History: Cancer Additional Family Medical History / Comment(s): Breast Cancer (mets to lung) at age 67 from pneumonia General Exam - General Exam Comments Initial Comments: Physical Exam GENERAL: Patient is well-developed and well-nourished. Patient is nontoxic and well-hydrated and is in no distress. HENT: Normocephalic, Atraumatic. EYES: PERRL, EOMI PULMONARY: Unlabored respirations. No audible rales rhonchi or wheezing was noted. CARDIOVASCULAR: There is a regular rate and rhythm without any murmurs gallops or rubs. ABDOMEN: Soft and nontender with normal bowel sounds. SKIN: Skin is clear with no lesions or rashes and otherwise unremarkable. : Deferred NEUROLOGIC: Patient is alert and oriented x3. Moving all extremities spontaneously MUSCULOSKELETAL: Significant scoliosis noted with marketed thoracic kyphosis PSYCHIATRIC: Normal psychiatric evaluation. Limitations: no limitations Course Vital Signs 08/21/20 08/21/20 08/21/20 22:07 22:25 22:39 Temperature 98.1 F Pulse Rate 69 73 66 Respiratory 16 16 16 Rate Blood Pressure 160/101 161/101 148/79 O2 Sat by Pulse 96 98 97 Oximetry 08/21/20 08/22/20 23:42 00:00 Temperature Pulse Rate 63 71 Respiratory 16 18 Rate Blood Pressure 157/89 137/86 O2 Sat by Pulse 98 98 Oximetry Chest Pain MDM - MDM 74yo female with no significant cardiac history presenting with chest heaviness and pain, shortness of breath at rest Cardiac workup initiated No relief of symptoms with supplemental O2, ASA, Nitro EKG non-ischemic Labs unremarkable but patient has persistent pleuritic chest pain - PE study was ordered PE study negative, patient will be admitted for further workup of chest pain and consult to cardiology Disposition Clinical Impression: Chest pain Disposition: ADMITTED IP TO THIS HOSP Condition: Stable Is patient prescribed a controlled substance at d/c from ED?: No
[2020-08-21 22:56] LABS: Basophils % (A) 1 %; Eosinophils # (A) 0.2 k/uL (0-0.7); Eosinophils % (A) 2 %; HCT 36.8 % (34.0-46.0); HGB 11.7 gm/dL (11.4-16.0); Lymphocytes # (A) 1.2 k/uL (1.0-4.8); Lymphocytes % (A) 16 %; MCH 32.8 pg (25.0-35.0); MCHC 31.7 g/dL (31.0-37.0); MCV 103.6 fL (80.0-100.0); Macrocytosis Slight; Monocytes # (A) 0.6 k/uL (0-1.0); Monocytes % (A) 9 %; Neutrophils # (A) 5.1 k/uL (1.3-7.7); Neutrophils % (A) 70 %; Platelet Count 258 k/uL (150-450); RBC 3.56 m/uL (3.80-5.40); RDW 12.3 % (11.5-15.5); WBC 7.3 k/uL (3.8-10.6)
[2020-08-21 23:04] LABS: Partial Thromboplastin Time 24.8 sec (22.0-30.0); Prothrombin Time 10.3 sec (9.0-12.0)
[2020-08-21 23:11] LABS: Albumin 4.7 g/dL (3.5-5.0); Magnesium 1.7 mg/dL (1.6-2.3); Potassium 4.8 mmol/L (3.5-5.1); Total Bilirubin 0.4 mg/dL (0.2-1.3); Total Protein 7.5 g/dL (6.3-8.2)
--- NOTE | 2020-08-21 23:26 | XR ---
EXAMINATION TYPE: XR chest 2V DATE OF EXAM: 08/21/2020 COMPARISON: 02/25/2017 HISTORY: Short of breath. Chest pain Heart is enlarged. There is no gross heart failure. There is coarsening of the interstitial markings. There is moderate thoracic dextroscoliosis deformity. There is no pleural effusion. IMPRESSION: Scoliotic deformity. Mild pulmonary fibrosis. Lung markings increased slightly compared t o old exam.
--- NOTE | 2020-08-22 00:58 | CT ---
EXAM: CT Angiography Chest With Intravenous Contrast CLINICAL HISTORY: ITS.REASON CT Reason: pleuritic chest pain TECHNIQUE: Axial computed tomographic angiography images of the chest with intravenous contrast. CTDI is 11.57 mGy and DLP is 226.2 mGy-cm. This CT exam was performed using one or more of the following dose reduction techniques: automated exposure control, adjustment of the mA and/or kV according to patient size, and/or use of iterative reconstruction technique. MIP reconstructed images were created and reviewed. COMPARISON: No relevant prior studies available. FINDINGS: Pulmonary arteries: No pulmonary embolus. Aorta: No thoracic aortic dissection or aneurysm. Lungs: Bibasilar atelectasis and/or scarring. No mass. Pleural space: Trace bilateral pleural effusion. No pneumothorax. Heart: Trace pericardial effusion. No evidence of RV dysfunction. Bones/joints: Marked scoliosis of the spine. Remote healed left rib fractures. No dislocation. Soft tissues: Postsurgical changes within the right breast. Lymph nodes: Unremarkable. No enlarged lymph nodes. IMPRESSION: 1. No pulmonary embolus. 2. No thoracic aortic dissection or aneurysm. 3. Bibasilar atelectasis and/or scarring. 4. Trace bilateral pleural effusions.
[2020-08-22 05:23] LABS: Cholesterol 194 mg/dL (<200); HDL Cholesterol 82 mg/dL (40-60); LDL Cholesterol,Calculated 91 mg/dL (0-99); Triglycerides 103 mg/dL (<150)
[2020-08-22] MEDS ORDERED: ASPIRIN 325 MG TAB PO SCH (09:00)
--- NOTE | 2020-08-22 10:22 | P.CRDCN ---
<Kathy Luis - Last Filed: 08/22/20 10:21> History of Present Illness History of present illness: CHIEF COMPLAINT: Chest pain HISTORY OF PRESENT ILLNESS: This is a 74-year old female with a past medical history significant for hypertension, hyperlipidemia, and scoliosis. Patient follows in the office with Dr. Carlson. We have been asked to see the patient in consultation for chest pain. Patient examined this morning at the bedside. She states she began having midsternal chest pain yesterday around 1800. She states the pain radiated into her back. No radiation into her arm or jaw. Patient also reports shortness of breath. She states she has a history of scoliosis and because of that she sometimes gets short of breath. She currently denies chest pain at rest. But states with any exertion she becomes more short of breath and then does have some chest discomfort. Patient states she wears a CPAP at night. She denies a previous history of COPD. Patient states she used to smoke and quit about 30 years ago. Patient reports she had a stress test approximately 6 months ago and states it was normal. DIAGNOSTICS: EKG reveals sinus rhythm. Chest xray mild pulmonary fibrosis. CTA: Negative for PE. Trace bilateral effusions. Laboratory data: WBC 7.3. Hemoglobin 11.7. Platelet count 258. Sodium 136. Potassium 4.8. BUN 20. Current 0.87. Magnesium 1.7. Troponin negative 3 Current home cardiac medications include lisinopril 5 mg daily, Coreg 12.5 mg twice a day, and Lipitor 40 mg daily REVIEW OF SYSTEMS: At the time of my exam: CONSTITUTIONAL: Denies fever or chills. HEENT: Denies blurred vision, vision changes, or eye pain. Denies hemoptysis CARDIOVASCULAR: Denies chest pain, orthopnea, PND or palpitations RESPIRATORY: Reports shortness of breath. GASTROINTESTINAL: Denies abdominal pain. Denies nausea or vomiting. HEMATOLOGIC: Denies bleeding disorders. GENITOURINARY: Denies any blood in urine. SKIN: Denies pruitis. Denies rash. PHYSICAL EXAM: VITAL SIGNS: Reviewed. GENERAL: Well-developed in no acute distress. HEENT: Head is normocephalic. Pupils are equal, round. Sclerae anicteric. Mucous membranes of the mouth are moist. Neck supple. No JVD or thyromegaly LUNGS: Respirations even and unlabored. Lungs with expiratory wheezing noted HEART: Regular rate and rhythm. S1 and S2 heard. ABDOMEN: Soft. Nondistended. Nontender. EXTREMITIES: Normal range of motion. No clubbing or cyanosis. Peripheral pulses intact. No lower extremity edema NEUROLOGIC: Awake and alert. Oriented x 3. ASSESSMENT: Chest pain, troponin negative x 3, no evidence of acute coronary syndrome Suspected COPD Hypertension Hyperlipidemia Scoliosis History of nicotine dependence, in remission PLAN: An acute coronary event has been ruled out Patient reports having a stress test within the last year which was negative Patient currently declining to have repeat stress test performed at this time Suspect patients symptoms are related to pulmonary etiology and suspected COPD. Defer stress testing until patients respiratory status is improved Obtain 2D echo to assess cardiac structure and function Patient may be discharged home from a cardiac perspective and she may follow up with Dr. Carlson Nurse practitioner note has been reviewed by physician. Signing provider agrees with the documented findings, assessment, and plan of care. Past Medical History Past Medical History: GERD/Reflux, Hyperlipidemia, Hypertension, Mitral Valve Prolapse (MVP), Osteoarthritis (OA) Additional Past Medical History / Comment(s): cerebral palsy, scoliosis, BIPAP machine at [facility] (pt states she does not have sleep apnea, but uses the BIPAP with oxygen "because of my back." History of Any Multi-Drug Resistant Organisms: None Reported Past Surgical History: Breast Surgery, Tonsillectomy Additional Past Surgical History / Comment(s): earl cataract, COLONOSCOPY, lumpectomy lt breast Past Anesthesia/Blood Transfusion Reactions: No Reported Reaction Past Psychological History: No Psychological Hx Reported Smoking Status: Former smoker Past Alcohol Use History: Daily Past Drug Use History: None Reported - Past Family History Father Family Medical History: Coronary Artery Disease (CAD) Additional Family Medical History / Comment(s): at 76 Mother Family Medical History: Coronary Artery Disease (CAD) Additional Family Medical History / Comment(s): at 73 Sister(s) Family Medical History: Cancer Additional Family Medical History / Comment(s): Breast Cancer (mets to lung) at age 67 from pneumonia Medications and Allergies Home Medications Medication Instructions Recorded Confirmed Type Atorvastatin [Lipitor] 40 mg PO HS 05/20/16 08/21/20 History Biotin 5,000 mcg PO AC-LUNCH 05/20/16 08/21/20 History Carvedilol [Coreg] 12.5 mg PO BID 05/20/16 08/21/20 History Celecoxib [CeleBREX] 200 mg PO QAM 05/20/16 08/21/20 History Docusate [Colace] 100 mg PO DAILY PRN 05/20/16 08/21/20 History Hydrocodone/Acetaminophen [[place] 1 tab PO Q6H PRN 05/20/16 08/21/20 History 5-325] Multivitamin/Iron/Folic Acid 1 each PO AC-LUNCH 05/20/16 08/21/20 History [Centrum Complete Multivit Tab] Omeprazole [PriLOSEC] 20 mg PO QAM 05/20/16 08/21/20 History Ubidecarenone [Co Q-10] 200 mg PO DAILY 05/20/16 08/21/20 History Acetaminophen [Tylenol Arthritis] 650 mg PO BID 02/27/17 08/21/20 History Lisinopril [Prinivil] 5 mg PO HS 02/27/17 08/21/20 History Cyanocobalamin (Vitamin B-12) 5,000 mcg PO AC-LUNCH 01/02/19 08/21/20 History [Vitamin B-12] Denosumab [Prolia] 60 mg SQ DIRECTED 01/02/19 08/21/20 History Montelukast [Singulair] 10 mg PO QAM 07/17/19 08/21/20 History cycloSPORINE [Restasis] 1 applicator BOTH EYES BID 07/17/19 08/21/20 History Calcium Carbonate/Vitamin D3 1 tab PO AC-LUNCH 08/04/19 08/21/20 History [Calcium 500-Vit D3 600 Tablet] Olopatadine HCl [Patanase] 2 spray NASAL BID 08/21/20 08/21/20 History Allergies Allergy/AdvReac Type Severity Reaction Status Date / Time amlodipine besylate Allergy Rash/Hives Verified 08/21/20 23:01 [From Norvasc] simvastatin [From Zocor] Allergy legs hurt Verified 08/21/20 23:01 Physical Exam Vitals: Vital Signs Temp Pulse Pulse Resp BP BP Pulse Ox 08/22/20 00:44 97.7 F 74 18 160/70 100 08/22/20 00:00 71 18 137/86 98 08/21/20 23:42 63 16 157/89 98 08/21/20 22:39 66 16 148/79 97 08/21/20 22:25 73 16 161/101 98 08/21/20 22:07 98.1 F 69 16 160/101 96 Intake and Output 08/21/20 08/22/20 08/22/20 22:59 06:59 14:59 Other: Weight 57.153 kg 57.153 kg Results 08/21/20 22:33 08/21/20 22:32 Cardiac Enzymes 08/21/20 08/21/20 08/22/20 Range/Units 22:32 22:33 00:56 AST 33 (14-36) U/L Troponin I <0.012 <0.012 (0.000-0.034) ng/mL 08/22/20 Range/Units 04:12 AST (14-36) U/L Troponin I 0.030 (0.000-0.034) ng/mL Coagulation 08/21/20 Range/Units 22:34 PT 10.3 (9.0-12.0) sec APTT 24.8 (22.0-30.0) sec Lipids 08/22/20 Range/Units 04:12 Triglycerides 103 (<150) mg/dL Cholesterol 194 (<200) mg/dL HDL Cholesterol 82 H (40-60) mg/dL CBC 08/21/20 Range/Units 22:33 WBC 7.3 (3.8-10.6) k/uL RBC 3.56 L (3.80-5.40) m/uL Hgb 11.7 (11.4-16.0) gm/dL Hct 36.8 (34.0-46.0) % Plt Count 258 (150-450) k/uL Comprehensive Metabolic Panel 08/21/20 Range/Units 22:32 Sodium 136 L (137-145) mmol/L Potassium 4.8 (3.5-5.1) mmol/L Chloride 107 (98-107) mmol/L Carbon Dioxide 19 L (22-30) mmol/L BUN 20 H (7-17) mg/dL Creatinine 0.87 (0.52-1.04) mg/dL Glucose 108 H (74-99) mg/dL Calcium 10.0 (8.4-10.2) mg/dL AST 33 (14-36) U/L ALT 21 (4-34) U/L Alkaline Phosphatase 78 (38-126) U/L Total Protein 7.5 (6.3-8.2) g/dL Albumin 4.7 (3.5-5.0) g/dL Current Medications Generic Name Dose Route Start Last Admin Trade Name Freq PRN Reason Stop Dose Admin Aspirin 325 mg 08/22/20 09:00 Aspirin 325 Mg Tab PO DAILY ADI Nitroglycerin 0.4 mg 08/21/20 22:35 08/21/20 23:46 Nitroglycerin Sl Tabs 0.4 Mg Tab SUBLINGUAL 0.4 mg Q5M PRN Administration Chest Pain Nitroglycerin 0.4 mg 08/21/20 23:57 Nitroglycerin Sl Tabs 0.4 Mg Tab SUBLINGUAL Q5M PRN Chest Pain Intake and Output 08/21/20 08/22/20 08/22/20 22:59 06:59 14:59 Other: Weight 57.153 kg 57.153 kg 08/21/20 22:33 08/21/20 22:32 <Roland Lee - Last Filed: 08/22/20 12:02> History of Present Illness Consult date: 08/22/20 Physical Exam Vitals: Vital Signs Temp Pulse Pulse Resp BP BP Pulse Ox 08/22/20 09:00 98.1 F 78 18 135/69 99 08/22/20 00:44 97.7 F 74 18 160/70 100 08/22/20 00:00 71 18 137/86 98 08/21/20 23:42 63 16 157/89 98 08/21/20 22:39 66 16 148/79 97 08/21/20 22:25 73 16 161/101 98 08/21/20 22:07 98.1 F 69 16 160/101 96 Intake and Output 08/21/20 08/22/20 08/22/20 22:59 06:59 14:59 Other: Weight 57.153 kg 57.153 kg Results 08/21/20 22:33 08/21/20 22:32 Cardiac Enzymes 08/21/20 08/21/20 08/22/20 Range/Units 22:32 22:33 00:56 AST 33 (14-36) U/L Troponin I <0.012 <0.012 (0.000-0.034) ng/mL 08/22/20 Range/Units 04:12 AST (14-36) U/L Troponin I 0.030 (0.000-0.034) ng/mL Coagulation 08/21/20 Range/Units 22:34 PT 10.3 (9.0-12.0) sec APTT 24.8 (22.0-30.0) sec Lipids 08/22/20 Range/Units 04:12 Triglycerides 103 (<150) mg/dL Cholesterol 194 (<200) mg/dL HDL Cholesterol 82 H (40-60) mg/dL CBC 08/21/20 Range/Units 22:33 WBC 7.3 (3.8-10.6) k/uL RBC 3.56 L (3.80-5.40) m/uL Hgb 11.7 (11.4-16.0) gm/dL Hct 36.8 (34.0-46.0) % Plt Count 258 (150-450) k/uL Comprehensive Metabolic Panel 08/21/20 Range/Units 22:32 Sodium 136 L (137-145) mmol/L Potassium 4.8 (3.5-5.1) mmol/L Chloride 107 (98-107) mmol/L Carbon Dioxide 19 L (22-30) mmol/L BUN 20 H (7-17) mg/dL Creatinine 0.87 (0.52-1.04) mg/dL Glucose 108 H (74-99) mg/dL Calcium 10.0 (8.4-10.2) mg/dL AST 33 (14-36) U/L ALT 21 (4-34) U/L Alkaline Phosphatase 78 (38-126) U/L Total Protein 7.5 (6.3-8.2) g/dL Albumin 4.7 (3.5-5.0) g/dL Current Medications Generic Name Dose Route Start Last Admin Trade Name Freq PRN Reason Stop Dose Admin Acetaminophen 650 mg 08/22/20 10:26 08/22/20 10:46 Acetaminophen Tab 325 Mg Tab PO 650 mg Q6HR PRN Administration Fever and/ or Pain Acetaminophen 650 mg 08/22/20 10:30 Acetaminophen Tab 325 Mg Tab PO BID ADI Hydrocodone Bitart/Acetaminophen 1 each 08/22/20 10:28 Hydrocodone/Apap 5-325mg 1 Each Tab PO Q6H PRN Pain Albuterol/Ipratropium 3 ml 08/22/20 12:00 Ipratropium-Albuterol 3 Ml Neb INHALATION RT-Q4H [facility] Atorvastatin Calcium 40 mg 08/22/20 21:00 Atorvastatin 40 Mg Tab PO HS [facility] Azelastine HCl 1 spray 08/22/20 10:30 Azelastine 137mcg/[place] INTRANASAL BID [facility] Azithromycin 500 mg 08/22/20 12:00 Azithromycin 500 Mg Tab PO DAILY [facility] Budesonide 1 mg 08/22/20 12:00 08/22/20 11:50 Budesonide 1 Mg/2 Ml Nebu INHALATION Not Given RT-BID [facility] Calcium Carbonate 1 each 08/22/20 12:30 Calcium Carb-Vit D 500mg-200un 1 Each Tab PO AC-LUNCH [facility] Carvedilol 12.5 mg 08/22/20 10:15 Carvedilol 12.5 Mg Tab PO AC-BID [facility] Cyanocobalamin 5,000 mcg 08/22/20 12:30 Cyanocobalamin 500 Mcg Tab PO AC-LUNCH [facility] Cyclosporine 1 drops 08/22/20 10:30 Cyclosporine 0.05% Ophth 0.4 Ml [place] BOTH EYES BID [facility] Docusate Sodium 100 mg 08/22/20 10:28 Docusate 100 Mg Cap PO DAILY PRN Constipation Enoxaparin Sodium 40 mg 08/22/20 11:30 Enoxaparin 40 Mg/0.4 Ml Syringe SQ DAILY [facility] Formoterol Fumarate 20 mcg 08/22/20 12:00 08/22/20 11:50 Formoterol Fumarate 20 Mcg/2 Ml Nebu INHALATION Not Given RT-BID [facility] Guaifenesin 600 mg 08/22/20 11:30 Guaifenesin 600 Mg Tablet.Er PO Q12HR [facility] Ceftriaxone Sodium 1 gm/ 50 mls @ 100 mls/hr 08/22/20 12:00 Sodium Chloride IVPB Q24H [facility] Lisinopril 5 mg 08/22/20 21:00 Lisinopril 5 Mg Tab PO HS [facility] Meloxicam 7.5 mg 08/22/20 10:30 Meloxicam 7.5 Mg Tab PO QAM [facility] Methylprednisolone Sodium Succinate 40 mg 08/22/20 11:30 Methylprednisolone Sod Succi 40 Mg/Ml 1 Ml Vial IV Q8HR [facility] Montelukast Sodium 10 mg 08/22/20 10:30 Montelukast 10 Mg Tab PO QAM [facility] Multivitamins 1 each 08/22/20 12:30 Multivitamins, [place]ra 1 Each Tab PO AC-LUNCH ADI Nitroglycerin 0.4 mg 08/21/20 22:35 08/21/20 23:46 Nitroglycerin Sl Tabs 0.4 Mg Tab SUBLINGUAL 0.4 mg Q5M PRN Administration Chest Pain Nitroglycerin 0.4 mg 08/21/20 23:57 Nitroglycerin Sl Tabs 0.4 Mg Tab SUBLINGUAL Q5M PRN Chest Pain Pantoprazole Sodium 40 mg 08/22/20 10:30 Pantoprazole 40 Mg Tablet [place] 0730 [facility] Intake and Output 08/21/20 08/22/20 08/22/20 22:59 06:59 14:59 Other: Weight 57.153 kg 57.153 kg 08/21/20 22:33 08/21/20 22:32
[2020-08-22] MEDS ORDERED: ACETAMINOPHEN TAB 325 MG TAB PO PRN (10:26)
[2020-08-22] MEDS ORDERED: DOCUSATE 100 MG CAP PO PRN (10:28)
[2020-08-22] MEDS: FORMOTEROL FUMARATE 20 MCG/2 ML NEBU INHALATION SCH ×2 (11:50→19:04)
[2020-08-22] MEDS: BUDESONIDE 1 MG/2 ML NEBU INHALATION SCH ×2 (11:50→19:04)
[2020-08-22] MEDS ORDERED: NON FORMULARY DRUG (Biotin [Biotin] 10,000 MCG Capsule) PO SCH (12:30)
[2020-08-22] MEDS: IPRATROPIUM-ALBUTEROL 3 ML NEB INHALATION SCH ×4 (12:43→23:02)
[2020-08-22] MEDS: MELOXICAM 7.5 MG TAB PO SCH (13:34)
[2020-08-22] MEDS: CALCIUM CARB-VIT D 500MG-200UN 1 EACH TAB PO SCH (13:34)
[2020-08-22] MEDS: cycloSPORINE 0.05% OPHTH 0.4 ML DROPERETTE BOTH EYES SCH ×2 (13:35→20:37)
[2020-08-22] MEDS: AZELASTINE 137MCG/SPRAY INTRANASAL SCH ×2 (13:35→20:36)
[2020-08-22] MEDS: AZITHROMYCIN 500 MG TAB PO SCH (13:35)
[2020-08-22] MEDS: ACETAMINOPHEN TAB 325 MG TAB PO SCH ×2 (13:35→20:36)
[2020-08-22] MEDS: methylPREDNISolone SOD SUCCI 40 MG/ML 1 ML VIAL IV SCH ×3 (13:43→23:51)
[2020-08-22] MEDS: ENOXAPARIN 40 MG/0.4 ML SYRINGE SQ SCH (13:43)
[2020-08-22] MEDS: PANTOPRAZOLE 40 MG TABLET PO SCH (13:43)
[2020-08-22] MEDS: carvediloL 12.5 MG TAB PO SCH ×2 (13:43→18:50)
[2020-08-22] MEDS: MULTIVITAMINS, THERA 1 EACH TAB PO SCH (13:44)
[2020-08-22] MEDS: MONTELUKAST 10 MG TAB PO SCH (13:44)
[2020-08-22] MEDS: guaiFENesin 600 MG TABLET.ER PO SCH ×2 (13:44→20:36)
[2020-08-22] MEDS: CYANOCOBALAMIN 500 MCG TAB PO SCH (13:45)
--- NOTE | 2020-08-22 13:57 | P.HPIM ---
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 Chronic stable medical conditions include GERD, hypertension, hyperlipidemia, osteoarthritis, cerebral palsy, scoliosis, BiPAP for restrictive lung disease. Lives with her . Does use a walker. For 1 week has been having increasing motor shortness of b reath. Some wheezing. Cough with some sputum. Significant wheezing. Appetite is okay. No edema. Has felt warm some chills. Admitted from the ER. Review of systems: GEN.: Tired some chills EYES: None HEENT: None NECK: None RESPIRATORY: As above CARDIOVASCULAR: None GASTROINTESTINAL: None GENITOURINARY: None MUSCULOSKELETAL: Joint pains] LYMPHATICS: None HEMATOLOGICAL: None PSYCHIATRY: None NEUROLOGICAL: Uses a walker Past medical history to include: GERD, hypertension, hyperlipidemia, osteoarthritis, cerebral pulses, scoliosis, BiPAP at night likely from restrictive lung disease Social history: Smoke a pack a day for 22 years stopped in 1987. Drinks 2 glasses of wine daily. Lives with her . Does use a walker.] Physical examination: VITAL SIGNS: 98.1, 69, 16, 160/101, 96% room air GENERAL: BMI 27.3, sitting up in bed, tired, short of breath. EYES: Pupils equal. Conjunctiva normal. HEENT: External appearance of nose and ears normal, oral cavity grossly normal. NECK: JVD unable to assess; masses not palpable. HEART: First and second heart sounds are normal; no edema. LUNGS: Respiratory rate increased, decreased breath sounds prolonged expiration some crackles, unable to speak in full sentences. ABDOMEN: Soft, nontender, liver spleen not palpable, no masses palpable. MUSCULAR skeletal: Kyphotic with severe scoliosis of the spine, evidence of OA PSYCH: [Alert and oriented x3; mood and affect some anxiety l. NEUROLOGICAL: Cranial nerves grossly intact; no facial asymmetry, power and sensation grossly intact. LYMPHATICS: No lymph nodes palpable in the axilla and neck INVESTIGATIONS, reviewed in the clinical context: White count 7.3 hemoglobin 11.7 platelets 258 potassium 4.8 creatinine 0.87 Troponin I 3 negative LDL 91 EKG tracing personally reviewed by me-no sinus rhythm Chest x-ray film personally reviewed by me-right lower lobe infiltrate, scoliosis. questionable chronic changes Assessment: -Right lower lobe pneumonia, suspect gram-negative organism, POA -Acute COPD exacerbation in a ex-smoker -Restrictive lung disease from severe scoliosis, uses a BiPAP -GERD -Hyperlipidemia -Essential hypertension -Primary osteoarthritis -Cerebral palsy - Plan: Patient be started on IV ceftriaxone Zithromax. 1, IV and inhaled steroids. Mucinex. Home medications to be resumed. Lovenox for DVT prophylaxis. Care was discussed with the patient question also. Patient will need at least 2 nights stay in the hospital. Past Medical History Past Medical History: GERD/Reflux, Hyperlipidemia, Hypertension, Mitral Valve Prolapse (MVP), Osteoarthritis (OA) Additional Past Medical History / Comment(s): cerebral palsy, scoliosis, BIPAP machine at HS (pt states she does not have sleep apnea, but uses the BIPAP with oxygen "because of my back." History of Any Multi-Drug Resistant Organisms: None Reported Past Surgical History: Breast Surgery, Tonsillectomy Additional Past Surgical History / Comment(s): earl cataract, COLONOSCOPY, lumpectomy lt breast Past Anesthesia/Blood Transfusion Reactions: No Reported Reaction Past Psychological History: No Psychological Hx Reported Smoking Status: Former smoker Past Alcohol Use History: Daily Past Drug Use History: None Reported - Past Family History Father Family Medical History: Coronary Artery Disease (CAD) Additional Family Medical History / Comment(s): at 76 Mother Family Medical History: Coronary Artery Disease (CAD) Additional Family Medical History / Comment(s): at 73 Sister(s) Family Medical History: Cancer Additional Family Medical History / Comment(s): Breast Cancer (mets to lung) at age 67 from pneumonia Medications and Allergies Home Medications Medication Instructions Recorded Confirmed Type Atorvastatin [Lipitor] 40 mg PO HS 05/20/16 08/21/20 History Biotin 5,000 mcg PO AC-LUNCH 05/20/16 08/21/20 History Carvedilol [Coreg] 12.5 mg PO BID 05/20/16 08/21/20 History Celecoxib [CeleBREX] 200 mg PO QAM 05/20/16 08/21/20 History Docusate [Colace] 100 mg PO DAILY PRN 05/20/16 08/21/20 History Hydrocodone/Acetaminophen [[place] 1 tab PO Q6H PRN 05/20/16 08/21/20 History 5-325] Multivitamin/Iron/Folic Acid 1 each PO AC-LUNCH 05/20/16 08/21/20 History [Centrum Complete Multivit Tab] Omeprazole [PriLOSEC] 20 mg PO QAM 05/20/16 08/21/20 History Ubidecarenone [Co Q-10] 200 mg PO DAILY 05/20/16 08/21/20 History Acetaminophen [Tylenol Arthritis] 650 mg PO BID 02/27/17 08/21/20 History Lisinopril [Prinivil] 5 mg PO HS 02/27/17 08/21/20 History Cyanocobalamin (Vitamin B-12) 5,000 mcg PO AC-LUNCH 01/02/19 08/21/20 History [Vitamin B-12] Denosumab [Prolia] 60 mg SQ DIRECTED 01/02/19 08/21/20 History Montelukast [Singulair] 10 mg PO QAM 07/17/19 08/21/20 History cycloSPORINE [Restasis] 1 applicator BOTH EYES BID 07/17/19 08/21/20 History Calcium Carbonate/Vitamin D3 1 tab PO AC-LUNCH 08/04/19 08/21/20 History [Calcium 500-Vit D3 600 Tablet] Olopatadine HCl [Patanase] 2 spray NASAL BID 08/21/20 08/21/20 History Allergies Allergy/AdvReac Type Severity Reaction Status Date / Time amlodipine besylate Allergy Rash/Hives Verified 08/21/20 23:01 [From Norvasc] simvastatin [From Zocor] Allergy legs hurt Verified 08/21/20 23:01 Physical Exam Vitals: Vital Signs Temp Pulse Pulse Resp BP BP Pulse Ox 08/22/20 12:55 80 08/22/20 12:46 76 08/22/20 09:00 98.1 F 78 18 135/69 99 08/22/20 00:44 97.7 F 74 18 160/70 100 08/22/20 00:00 71 18 137/86 98 08/21/20 23:42 63 16 157/89 98 08/21/20 22:39 66 16 148/79 97 08/21/20 22:25 73 16 161/101 98 08/21/20 22:07 98.1 F 69 16 160/101 96 Intake and Output 08/21/20 08/22/20 08/22/20 22:59 06:59 14:59 Other: Weight 57.153 kg 57.153 kg Results CBC & Chem 7: 08/21/20 22:33 08/21/20 22:32 Labs: Abnormal Lab Results - Last 24 Hours (Table) 08/21/20 08/21/20 08/22/20 Range/Units 22:32 22:33 04:12 RBC 3.56 L (3.80-5.40) m/uL MCV 103.6 H (80.0-100.0) fL Sodium 136 L (137-145) mmol/L Carbon Dioxide 19 L (22-30) mmol/L BUN 20 H (7-17) mg/dL Glucose 108 H (74-99) mg/dL HDL Cholesterol 82 H (40-60) mg/dL Thrombosis Risk Factor Assmnt - Choose All That Apply Any of the Below Risk Factors Present?: Yes Each Factor Represents 1 point: Obesity (BMI >25) Other Risk Factors: Yes Each Risk Factor Represents 2 Points: Age 61-74 years Other congenital or acquired thrombophilia - If yes, enter type in comment: No Thrombosis Risk Factor Assessment Total Risk Factor Score: 3 Thrombosis Risk Factor Assessment Level: Moderate Risk
[2020-08-22] MEDS: HYDROcodone/APAP 5-325MG 1 EACH TAB PO PRN ×2 (14:00→20:37)
[2020-08-22] MEDS: ATORVASTATIN 40 MG TAB PO SCH (20:36)
[2020-08-22] MEDS: lisinopriL 5 MG TAB PO SCH ×2 (20:36→23:07)
[2020-08-23] MEDS: HYDROcodone/APAP 5-325MG 1 EACH TAB PO PRN ×3 (02:38→22:10)
[2020-08-23] MEDS: IPRATROPIUM-ALBUTEROL 3 ML NEB INHALATION SCH ×6 (03:38→23:22)
[2020-08-23] MEDS: carvediloL 12.5 MG TAB PO SCH ×2 (07:51→17:01)
[2020-08-23] MEDS: methylPREDNISolone SOD SUCCI 40 MG/ML 1 ML VIAL IV SCH ×2 (07:51→16:59)
[2020-08-23] MEDS: PANTOPRAZOLE 40 MG TABLET PO SCH (07:51)
[2020-08-23] MEDS: BUDESONIDE 1 MG/2 ML NEBU INHALATION SCH ×2 (08:14→19:56)
[2020-08-23] MEDS: FORMOTEROL FUMARATE 20 MCG/2 ML NEBU INHALATION SCH ×2 (08:14→19:56)
[2020-08-23] MEDS: cycloSPORINE 0.05% OPHTH 0.4 ML DROPERETTE BOTH EYES SCH ×2 (09:07→20:26)
[2020-08-23] MEDS: MONTELUKAST 10 MG TAB PO SCH (09:07)
[2020-08-23] MEDS: guaiFENesin 600 MG TABLET.ER PO SCH ×2 (09:07→20:23)
[2020-08-23] MEDS: ENOXAPARIN 40 MG/0.4 ML SYRINGE SQ SCH (09:07)
[2020-08-23] MEDS: MELOXICAM 7.5 MG TAB PO SCH (09:08)
[2020-08-23] MEDS: AZELASTINE 137MCG/SPRAY INTRANASAL SCH ×2 (09:08→20:23)
[2020-08-23] MEDS: AZITHROMYCIN 500 MG TAB PO SCH (09:08)
[2020-08-23] MEDS: ACETAMINOPHEN TAB 325 MG TAB PO SCH ×2 (10:11→20:22)
--- NOTE | 2020-08-23 10:41 | P.PN ---
Subjective Progress Note Date: 08/23/20 CHIEF COMPLAINT: Chest pain HISTORY OF PRESENT ILLNESS: Patient examined this morning at the bedside. She denies chest pain or pressure. She states her shortness of breath is improving. She is receiving IV steroids and antibiotics. PHYSICAL EXAM: VITAL SIGNS: Reviewed. GENERAL: Well-developed in no acute distress. HEENT: Head is normocephalic. Pupils are equal, round. Sclerae anicteric. Mucous membranes of the mouth are moist. Neck supple. No JVD or thyromegaly LUNGS: Respirations even and unlabored. Lungs with expiratory wheezing noted HEART: Regular rate and rhythm. S1 and S2 heard. ABDOMEN: Soft. Nondistended. Nontender. EXTREMITIES: Normal range of motion. No clubbing or cyanosis. Peripheral pulses intact. No lower extremity edema NEUROLOGIC: Awake and alert. Oriented x 3. ASSESSMENT: Chest pain, troponin negative x 3, no evidence of acute coronary syndrome Acute exacerbation of COPD Pneumonia Hypertension Hyperlipidemia Scoliosis History of nicotine dependence, in remission PLAN: Echo ordered. Await results Continue medical treatment of COPD and pneumonia Patient may be discharged home from a cardiac perspective and she may follow up with Dr. Carlson We will sign off. Please re-consult if needed. Nurse practitioner note has been reviewed by physician. Signing provider agrees with the documented findings, assessment, and plan of care. Objective - Vital Signs Vital signs: Vital Signs Temp 98.5 F 08/23/20 09:00 Pulse 86 08/23/20 09:00 Resp 17 08/23/20 09:00 BP 161/84 08/23/20 09:00 Pulse Ox 98 08/23/20 09:00 Intake & Output 08/22/20 08/23/20 08/23/20 18:59 06:59 18:59 Intake Total 620 Balance 620 Intake: Oral 620 Other: Voiding Method Bedside Commode # Voids 2 1 2 # Bowel Movements 1 - Labs CBC & Chem 7: 08/21/20 22:33 08/21/20 22:32
[2020-08-23] MEDS: MULTIVITAMINS, THERA 1 EACH TAB PO SCH (11:47)
[2020-08-23] MEDS: CALCIUM CARB-VIT D 500MG-200UN 1 EACH TAB PO SCH (11:47)
--- NOTE | 2020-08-23 13:31 | ECHOF ---
Referral Reason:LV function MEASUREMENTS -------- HEIGHT: 144.8 cm WEIGHT: 57.2 kg BP: 161/84 RVIDd: 2.7 cm (< 3.3) IVSd: 1.1 cm (0.6 - 1.1) LVIDd: 4.7 cm (3.9 - 5.3) LVPWd: 1.0 cm (0.6 - 1.1) IVSs: 1.7 cm LVIDs: 3.1 cm LVPWs: 1.6 cm LA Diam: 4.1 cm (2.7 - 3.8) LAESV Index (A-L): 41.00 ml/m Ao Diam: 3.0 cm (2.0 - 3.7) AV Cusp: 1.7 cm (1.5 - 2.6) MV EXCURSION: 19.783 mm (> 18.000) MV EF SLOPE: 143 mm/s (70 - 150) MV E Aquilino: 0.70 m/s MV DecT: 157 ms MV A Aquilino: 0.64 m/s MV E/A Ratio: 1.09 AR PHT: 569 ms RAP: 5.00 mmHg RVSP: 36.34 mmHg FINDINGS -------- Sinus rhythm. This was a technically adequate study. The left ventricular size is normal. There is borderline concentric left ventricular hypertrophy. Overall left ventricular systolic function is mild-moderately impaired with, an EF between 40 - 45 % . Basal anterior LV wall motion is hypokinetic. Mid anterior LV wall motion is hypokinetic. A pical anterior LV wall motion is hypokinetic. The right ventricle is normal in size. LA is severely dilated >40 ml/m2 The right atrium is normal in size. Interatrial and interventricular septum intact. There is mild aortic valve sclerosis. There is mild aortic regurgitation. The mitral valve leaflets are mildly thickened. Mild mitral annular calcification present. Mild m itral regurgitation is present. Mild tricuspid regurgitation present. There is mild pulmonary hypertension. The right ventricular systolic pressure, as measured by Doppler, is 36.34mmHg. The pulmonic valve was not well visualized. The aortic root size is normal. Normal inferior vena cava with normal inspiratory collapse consistent with estimated right atrial pre ssure of 5 mmHg. There is no pericardial effusion. CONCLUSIONS -------- 1. The left ventricular size is normal. 2. There is borderline concentric left ventricular hypertrophy. 3. Overall left ventricular systolic function is mild-moderately impaired with, an EF between 40 - 45 %. 4. Basal anterior LV wall motion is hypokinetic. 5. Mid anterior LV wall motion is hypokinetic. 6. Apical anterior LV wall motion is hypokinetic. 7. LA is severely dilated >40 ml/m2 8. There is mild aortic valve sclerosis. 9. There is mild aortic regurgitation. 10. The mitral valve leaflets are mildly thickened. 11. Mild mitral annular calcification present. 12. Mild mitral regurgitation is present. 13. Mild tricuspid regurgitation present. 14. There is mild pulmonary hypertension. 15. The right ventricular systolic pressure, as measured by Doppler, is 36.34mmHg. 16. There is no pericardial effusion. PIPE [employer] SAWYER: Lorraine Siddiqui RDCS
[2020-08-23] MEDS: CYANOCOBALAMIN 500 MCG TAB PO SCH (15:11)
--- NOTE | 2020-08-23 19:46 | P.PN ---
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 Chronic stable medical conditions include GERD, hypertension, hyperlipidemia, osteoarthritis, cerebral palsy, scoliosis, BiPAP for restrictive lung disease. Lives with her . Does use a walker. For 1 week has been having increasing motor shortness of breath. Some wheezing. Cough with some sputum. Significant wheezing. Appetite is okay. No edema. Has felt warm some chills. Admitted from the ER. Admitted with COPD exacerbation, pneumonia,. Started on IV ceftriaxone, Zithromax, bronchodilators, steroids. Today-breathing better. Less wheezing. Less short of breath. Oral intake better. at the bedside. Review of systems: Was done for constitutional, cardiovascular, GI, pulmonary. relevant finding as above Active Medications Acetaminophen (Acetaminophen Tab 325 Mg Tab) 650 mg PO Q6HR PRN PRN Reason: Fever and/ or Pain Last Admin: 08/22/20 10:46 Dose: 650 mg Documented by: Acetaminophen (Acetaminophen Tab 325 Mg Tab) 650 mg PO BID [facility] Last Admin: 08/23/20 10:11 Dose: Not Given Documented by: Hydrocodone Bitart/Acetaminophen (Hydrocodone/Apap 5-325mg 1 Each Tab) 1 each PO Q6H PRN PRN Reason: Pain Last Admin: 08/23/20 09:12 Dose: 1 each Documented by: Albuterol/Ipratropium (Ipratropium-Albuterol 3 Ml Neb) 3 ml INHALATION RT-Q4H [facility] Last Admin: 08/23/20 15:06 Dose: 3 ml Documented by: Atorvastatin Calcium (Atorvastatin 40 Mg Tab) 40 mg PO HS [facility] Last Admin: 08/22/20 20:36 Dose: 40 mg Documented by: Azelastine HCl (Azelastine 137mcg/Drewsey) 1 spray INTRANASAL BID [facility] Last Admin: 08/23/20 09:08 Dose: 1 spray Documented by: Azithromycin (Azithromycin 500 Mg Tab) 500 mg PO DAILY [facility] Last Admin: 08/23/20 09:08 Dose: 500 mg Documented by: Budesonide (Budesonide 1 Mg/2 Ml Nebu) 1 mg INHALATION RT-BID [facility] Last Admin: 08/23/20 08:14 Dose: Not Given Documented by: Calcium Carbonate (Calcium Carb-Vit D 500mg-200un 1 Each Tab) 1 each PO AC- LUNCH [facility] Last Admin: 08/23/20 11:47 Dose: 1 each Documented by: Carvedilol (Carvedilol 12.5 Mg Tab) 12.5 mg PO AC-BID [facility] Last Admin: 08/23/20 17:01 Dose: 12.5 mg Documented by: Cyanocobalamin (Cyanocobalamin 500 Mcg Tab) 500 mcg PO DAILY [facility] Cyclosporine (Cyclosporine 0.05% Ophth 0.4 Ml Droperette) 1 drops BOTH EYES BID [facility] Last Admin: 08/23/20 09:07 Dose: 1 drops Documented by: Docusate Sodium (Docusate 100 Mg Cap) 100 mg PO DAILY PRN PRN Reason: Constipation Enoxaparin Sodium (Enoxaparin 40 Mg/0.4 Ml Syringe) 40 mg SQ DAILY [facility] Last Admin: 08/23/20 09:07 Dose: 40 mg Documented by: Formoterol Fumarate (Formoterol Fumarate 20 Mcg/2 Ml Nebu) 20 mcg INHALATION RT-BID [facility] Last Admin: 08/23/20 08:14 Dose: Not Given Documented by: Guaifenesin (Guaifenesin 600 Mg Tablet.Er) 600 mg PO Q12HR [facility] Last Admin: 08/23/20 09:07 Dose: 600 mg Documented by: Ceftriaxone Sodium 1 gm/ (Sodium Chloride) 50 mls @ 100 mls/hr IVPB Q24H [facility] Last Admin: 08/23/20 11:47 Dose: 100 mls/hr Documented by: Lisinopril (Lisinopril 5 Mg Tab) 5 mg PO HS [facility] Last Admin: 08/22/20 23:07 Dose: Not Given Documented by: Meloxicam (Meloxicam 7.5 Mg Tab) 7.5 mg PO QAM [facility] Last Admin: 08/23/20 09:08 Dose: 7.5 mg Documented by: Methylprednisolone Sodium Succinate (Methylprednisolone Sod Succi 40 Mg/Ml 1 Ml Vial) 40 mg IV Q8HR [facility] Last Admin: 08/23/20 16:59 Dose: 40 mg Documented by: Montelukast Sodium (Montelukast 10 Mg Tab) 10 mg PO QAM [facility] Last Admin: 08/23/20 09:07 Dose: 10 mg Documented by: Multivitamins (Multivitamins, Thera 1 Each Tab) 1 each PO AC-LUNCH [facility] Last Admin: 08/23/20 11:47 Dose: 1 each Documented by: Nitroglycerin (Nitroglycerin Sl Tabs 0.4 Mg Tab) 0.4 mg SUBLINGUAL Q5M PRN PRN Reason: Chest Pain Last Admin: 08/21/20 23:46 Dose: 0.4 mg Documented by: Nitroglycerin (Nitroglycerin Sl Tabs 0.4 Mg Tab) 0.4 mg SUBLINGUAL Q5M PRN PRN Reason: Chest Pain Pantoprazole Sodium (Pantoprazole 40 Mg Tablet) 40 mg PO 07 [facility] Last Admin: 08/23/20 07:51 Dose: 40 mg Documented by: Physical examination: VITAL SIGNS: 98.5, 86, 17, 161/84, 98% room air GENERAL: BMI 27.3, sitting up in bed, breathing better EYES: Pupils equal. Conjunctiva normal. HEENT: External appearance of nose and ears normal, oral cavity grossly normal. NECK: JVD unable to assess; masses not palpable. HEART: First and second heart sounds are normal; no edema. LUNGS: Respiratory rate increased, decreased breath sounds prolonged expiration ABDOMEN: Soft, nontender, liver spleen not palpable, no masses palpable. MUSCULAR skeletal: Kyphotic with severe scoliosis of the spine, evidence of OA PSYCH: Alert and oriented x3; mood and affect some anxiety . INVESTIGATIONS, reviewed in the clinical context: White count 7.3 hemoglobin 11.7 platelets 258 potassium 4.8 creatinine 0.87 Troponin I 3 negative LDL 91 EKG tracing personally reviewed by me-no sinus rhythm Chest x-ray film personally reviewed by me-right lower lobe infiltrate, scoliosis. questionable chronic changes Assessment: -Right lower lobe pneumonia, suspect gram-negative organism, POA -Acute COPD exacerbation in a ex-smoker -Restrictive lung disease from severe scoliosis, uses a BiPAP -GERD -Hyperlipidemia -Essential hypertension -Primary osteoarthritis -Cerebral palsy Plan: Continue with DuoNeb, antibiotics Solu-Medrol. Improved. Hopefully discharge tomorrow. Discussed with patient.
[2020-08-23] MEDS: ATORVASTATIN 40 MG TAB PO SCH (20:23)
[2020-08-23] MEDS: lisinopriL 5 MG TAB PO SCH (20:23)
[2020-08-24] MEDS: methylPREDNISolone SOD SUCCI 40 MG/ML 1 ML VIAL IV SCH ×2 (01:04→08:04)
[2020-08-24] MEDS: IPRATROPIUM-ALBUTEROL 3 ML NEB INHALATION SCH ×3 (02:44→10:42)
[2020-08-24] MEDS: BUDESONIDE 1 MG/2 ML NEBU INHALATION SCH (07:17)
[2020-08-24] MEDS: FORMOTEROL FUMARATE 20 MCG/2 ML NEBU INHALATION SCH (07:17)
[2020-08-24] MEDS: MULTIVITAMINS, THERA 1 EACH TAB PO SCH (08:05)
[2020-08-24] MEDS: ACETAMINOPHEN TAB 325 MG TAB PO SCH (08:05)
[2020-08-24] MEDS: CALCIUM CARB-VIT D 500MG-200UN 1 EACH TAB PO SCH (08:05)
[2020-08-24] MEDS: MONTELUKAST 10 MG TAB PO SCH (08:05)
[2020-08-24] MEDS: guaiFENesin 600 MG TABLET.ER PO SCH (08:05)
[2020-08-24] MEDS: PANTOPRAZOLE 40 MG TABLET PO SCH (08:05)
[2020-08-24] MEDS: cycloSPORINE 0.05% OPHTH 0.4 ML DROPERETTE BOTH EYES SCH (08:05)
[2020-08-24] MEDS: carvediloL 12.5 MG TAB PO SCH (08:05)
[2020-08-24] MEDS: AZITHROMYCIN 500 MG TAB PO SCH (08:05)
[2020-08-24] MEDS: MELOXICAM 7.5 MG TAB PO SCH (08:05)
[2020-08-24] MEDS: AZELASTINE 137MCG/SPRAY INTRANASAL SCH (08:06)
[2020-08-24] MEDS: ENOXAPARIN 40 MG/0.4 ML SYRINGE SQ SCH (08:06)
[2020-08-24] MEDS: HYDROcodone/APAP 5-325MG 1 EACH TAB PO PRN (08:08)
[2020-08-24] MEDS ORDERED: CYANOCOBALAMIN 500 MCG TAB PO SCH (09:00)
[2020-08-24 09:03] VITALS: BP 121/58; RESP 16; TEMP 98.5
[2020-08-24 10:54] VITALS: PULSE 62
--- NOTE | 2020-08-24 19:44 | P.DS ---
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 Chronic stable medical conditions include GERD, hypertension, hyperlipidemia, osteoarthritis, cerebral palsy, scoliosis, BiPAP for restrictive lung disease. Lives with her . Does use a walker. For 1 week has been having increasing motor shortness of breath. Some wheezing. Cough with some sputum. Significant wheezing. Appetite is okay. No edema. Has felt warm some chills. Admitted from the ER. Admitted with COPD exacerbation, pneumonia,. Started on IV ceftriaxone, Zithromax, bronchodilators, steroids. Seen by cardiology. No further recommendations. Today-doing much better. Breathing much improved. No wheezing. Oral intake improved. He to go home. Care was discussed with the patient. Consultation: Dr. Lee from cardiology Physical examination: VITAL SIGNS: 98.5, 89, 16, 121/58, 93% room air GENERAL: sitting up in bed, breathing much easier EYES: Pupils equal. Conjunctiva normal. HEENT: External appearance of nose and ears normal, oral cavity grossly normal. NECK: JVD unable to assess; masses not palpable. HEART: First and second heart sounds are normal; no edema. LUNGS: Respiratory rate increased, decreased breath sounds decreased ABDOMEN: Soft, nontender, liver spleen not palpable, no masses palpable. MUSCULAR skeletal: Kyphotic with severe scoliosis of the spine, evidence of OA PSYCH: Alert and oriented x3; mood and affect some anxiety . INVESTIGATIONS, reviewed in the clinical context: White count 7.3 hemoglobin 11.7 platelets 258 potassium 4.8 creatinine 0.87 Troponin I 3 negative LDL 91 EKG tracing personally reviewed by me-no sinus rhythm Chest x-ray film personally reviewed by me-right lower lobe infiltrate, scoliosis. questionable chronic changes Assessment: -Right lower lobe pneumonia, suspect gram-negative organism, POA -Acute COPD exacerbation in a ex-smoker -Restrictive lung disease from severe scoliosis, uses a BiPAP -GERD -Hyperlipidemia -Essential hypertension -Primary osteoarthritis -Cerebral palsy Disposition: Home Patient Condition at Discharge: Stable Plan - Discharge Summary Discharge Rx Participant: No New Discharge Prescriptions: New Cefuroxime Axetil [Ceftin] 500 mg PO BID #4 tab Ipratropium-Albuterol Nebulize [Duoneb 0.5 mg-3 mg/3 ml Soln] 3 ml INHALATION TID #90 ml predniSONE 10 mg PO DAILY #30 tab Continue Ubidecarenone [Co Q-10] 200 mg PO DAILY Hydrocodone/Acetaminophen [[place] 5-325] 1 tab PO Q6H PRN PRN Reason: Pain Omeprazole [PriLOSEC] 20 mg PO QAM Celecoxib [CeleBREX] 200 mg PO QAM Carvedilol [Coreg] 12.5 mg PO BID Atorvastatin [Lipitor] 40 mg PO HS Multivitamin/Iron/Folic Acid [Centrum Complete Multivit Tab] 1 each PO AC- LUNCH Docusate [Colace] 100 mg PO DAILY PRN PRN Reason: Constipation Biotin 5,000 mcg PO AC-LUNCH Lisinopril [Prinivil] 5 mg PO HS Acetaminophen [Tylenol Arthritis] 650 mg PO BID Denosumab [Prolia] 60 mg SQ DIRECTED Cyanocobalamin (Vitamin B-12) [Vitamin B-12] 5,000 mcg PO AC-LUNCH cycloSPORINE [Restasis] 1 applicator BOTH EYES BID Montelukast [Singulair] 10 mg PO QAM Calcium Carbonate/Vitamin D3 [Calcium 500-Vit D3 600 Tablet] 1 tab PO AC- LUNCH Olopatadine HCl [Patanase] 2 spray NASAL BID Discharge Medication List Atorvastatin [Lipitor] 40 mg PO HS 05/20/16 [History] Biotin 5,000 mcg PO AC-LUNCH 05/20/16 [History] Carvedilol [Coreg] 12.5 mg PO BID 05/20/16 [History] Celecoxib [CeleBREX] 200 mg PO QAM 05/20/16 [History] Docusate [Colace] 100 mg PO DAILY PRN 05/20/16 [History] Hydrocodone/Acetaminophen [[place] 5-325] 1 tab PO Q6H PRN 05/20/16 [History] Multivitamin/Iron/Folic Acid [Centrum Complete Multivit Tab] 1 each PO AC-LUNCH 05/20/16 [History] Omeprazole [PriLOSEC] 20 mg PO QAM 05/20/16 [History] Ubidecarenone [Co Q-10] 200 mg PO DAILY 05/20/16 [History] Acetaminophen [Tylenol Arthritis] 650 mg PO BID 02/27/17 [History] Lisinopril [Prinivil] 5 mg PO HS 02/27/17 [History] Cyanocobalamin (Vitamin B-12) [Vitamin B-12] 5,000 mcg PO AC-LUNCH 01/02/19 [History] Denosumab [Prolia] 60 mg SQ DIRECTED 01/02/19 [History] Montelukast [Singulair] 10 mg PO QAM 07/17/19 [History] cycloSPORINE [Restasis] 1 applicator BOTH EYES BID 07/17/19 [History] Calcium Carbonate/Vitamin D3 [Calcium 500-Vit D3 600 Tablet] 1 tab PO AC-LUNCH 08/04/19 [History] Olopatadine HCl [Patanase] 2 spray NASAL BID 08/21/20 [History] Cefuroxime Axetil [Ceftin] 500 mg PO BID #4 tab 08/24/20 [Rx] Ipratropium-Albuterol Nebulize [Duoneb 0.5 mg-3 mg/3 ml Soln] 3 ml INHALATION TID #90 ml 08/24/20 [Rx] predniSONE 10 mg PO DAILY #30 tab 08/24/20 [Rx] Follow up Appointment(s)/Referral(s): Jamia Carlson MD [STAFF PHYSICIAN] - 09/07/20 2:30 pm [facility], [NON-STAFF] - 1-2 Days Constantino Padilla MD [Primary Care Provider] - 1-2 days Patient Instructions/Handouts: Pneumonitis (DC) Discharge Disposition: HOME WITH HOME HEALTH SERVICES
== END 2020-08-24 13:45 | disposition home health service (06) | DRG 178 ==
LOC: EC 22:06 → 1SOBS 23:57 → OBSVTOIN 08-22 13:57
PROVIDERS: ADMIT Hospitalist; ATTEND Hospitalist
DX: J15.6 Pneumonia due to other Gram-negative bacteria (principal); J44.0 Chronic obstructive pulmonary disease with (acute) lower respiratory infection; J44.1 Chronic obstructive pulmonary disease with (acute) exacerbation; Z87.891 Personal history of nicotine dependence; Z99.81 Dependence on supplemental oxygen; G80.9 Cerebral palsy, unspecified; E78.5 Hyperlipidemia, unspecified; I10 Essential (primary) hypertension; I34.1 Nonrheumatic mitral (valve) prolapse; J84.10 Pulmonary fibrosis, unspecified; J98.4 Other disorders of lung; K21.9 Gastro-esophageal reflux disease without esophagitis; M19.91 Primary osteoarthritis, unspecified site; M41.9 Scoliosis, unspecified; Z79.899 Other long term (current) drug therapy; Z80.3 Family history of malignant neoplasm of breast; Z82.49 Family history of ischemic heart disease and other diseases of the circulatory system; Z83.6 Family history of other diseases of the respiratory system; Z90.89 Acquired absence of other organs; E66.9 Obesity, unspecified; Z68.27 Body mass index [BMI] 27.0-27.9, adult; Z98.42 Cataract extraction status, left eye; Z98.41 Cataract extraction status, right eye
CPT/HCPCS: 36415; 71046; 71275; 80053; 80061; 83735; 83880; 84484; 85025; 85610; 85730; 93005; 93306; 94640; 99285

== ENCOUNTER → 2020-08-29 | Outpatient (CLI) | payer MEDICARE, OTHER ==
--- NOTE | 2020-08-31 10:10 | MM ---
Reason for exam: screening (asymptomatic). Last mammogram was performed 1 year ago. History: Patient is postmenopausal, has history of high-risk lesion on a previous biopsy at age 73, and is nulliparous. Family history of breast cancer in sister at age 66. High risk MG pre op needle loc RT of the right breast, December 23, 2018. Physical Findings: A clinical breast exam by your physician is recommended on an annual basis and results should be correlated with mammographic findings. MG 3D Screening Mammo W/Cad Bilateral CC and MLO view(s) were taken. Prior study comparison: July 13, 2019, right breast MG 3d diag mammo w/cad RT. August 22, 2018, bilateral MG 3d screening mammo w/cad. October 08, 2016, right breast MG 3d diag mammo w/cad RT. There are scattered fibroglandular densities. No significant changes when compared with prior studies. ASSESSMENT: Benign, BI-RAD 2 RECOMMENDATION: Routine screening mammogram of both breasts in 1 year.
== END | disposition home or self-care (01) ==
LOC: RADMAMWWP 08:47
PROVIDERS: ATTEND Surgery
DX: Z12.31 Encounter for screening mammogram for malignant neoplasm of breast (principal)
CPT/HCPCS: 77063; 77067

== ENCOUNTER → 2020-09-02 | Outpatient (CLI) | payer MEDICARE, OTHER ==
[2020-09-02 11:03] VITALS: BP 147/85; PULSE 62; RESP 18; TEMP 97.5
--- NOTE | 2020-09-02 11:17 | P.PN ---
Subjective Progress Note Date: 09/02/20 Principal diagnosis: Fibrocystic breast changes Shantel is a 74-year-old white female who presented in 2017 with a mammographic abnormality noted in her right breast. Mammogram was done on [id number]. A new 5 mm group of right calcifications in the central inner breast were noted. No suspicious abnormalities on the left breast were noted. Additional views of the right breast were obtained which determined that the microcalcifications were indeterminant and a stereotactic core biopsy was recommended. Stereotactic core biopsy revealed atypia bordering on DCIS and resulted in a needle localization and an open biopsy on 12-23-18. Pathology revealed focal atypical hyperplasia, margins were negative. Her most recent bilateral mammogram was performed on [id number]. This was benign BIRADS 2. She does not have any lumps masses or nodules in her breasts for which she is concerned. Caffeine: One cup per day Nicotine: Negative Theophylline: Occasional Family history: 1. Breast cancer in a sister at age 66 Hormonal History: menarche: 12 : none menopause: 31 BCP: none hormones: none Past surgical history: Tonsil cataract Open biopsy of the right breast Past Medical History: 1. Leaking heart valve 2. GERD 3. Hypertension 4. High cholesterol 5. Cerebral palsy 6. Scoliosis 7. Hospitalized last week with pneumonia/improved now Social History: smoke: none alcohol: 2 wine/day drugs: Vicodin for back pain - Constitutional Constitutional: Denies chills, Denies fever - EENT Eyes: denies blurred vision, denies pain Ears: deny: decreased hearing, tinnitus Ears, nose, mouth and throat: Denies headache, Denies sore throat - Breasts Breasts: bilateral: as per HPI - Cardiovascular Comment: leaking valve (mitral valve prolapse) Cardiovascular: Reports high blood pressure - Respiratory Respiratory: Denies cough - Gastrointestinal Comment: PUD, GERD reflux Gastrointestinal: Denies abdominal pain, Denies diarrhea, Denies nausea, Denies vomiting - Genitourinary (Female) Genitourinary: Denies dysuria, Denies hematuria - Menstruation Menstruation: Reports postmenopausal - Musculoskeletal Comment: cerebral palsy - Integumentary Integumentary: Denies pruritus, Denies rash - Neurological Comment: arthritis Neurological: Reports numbness, Reports weakness - Psychiatric Psychiatric: Denies anxiety, Denies depression - Endocrine Endocrine: Denies fatigue, Denies weight change - Hematologic/Lymphatic Comment: aspirin - Allergic/Immunologic Allergic/Immunologic: Reports seasonal allergies Objective - Vital Signs Vital signs: Vital Signs Temp 97.5 F L 09/02/20 11:00 Pulse 62 09/02/20 11:00 Resp 18 09/02/20 11:00 BP 147/85 09/02/20 11:00 Pulse Ox 97 09/02/20 11:00 Intake & Output 09/01/20 09/02/20 09/02/20 18:59 06:59 18:59 Weight 56.699 kg - Exam BMI 27 - Constitutional General appearance: Present: obese - EENT Eyes: Present: EOMI ENT: Present: hearing grossly normal - Respiratory Respiratory: bilateral: CTA - Cardiovascular Heart sounds: normal: S1, S2 - Gastrointestinal General gastrointestinal: Present: normal bowel sounds, soft - Integumentary Integumentary: Present: normal turgor - Musculoskeletal Musculoskeletal Comment(s): scoliosis, uses a walker - Psychiatric Psychiatric: Present: A&O x's 3 - Additional findings Additional findings: breast exam: BRA: 36DD inspection: grade 3 ptosis bilateral palpation: right breast: Positional exam fibrocystic changes, well-healed scar from prior biopsy no dominant masses or nodules of concern Right axilla: No adenopathy of concern Left breast: Multi-positional exam fibrocystic changes, no dominant masses or nodules of concern Left axilla: No adenopathy of concern Assessment and Plan Assessment: Impression: 1. Leaking heart valve 2. GERD 3. Hypertension 4. High cholesterol 5. Cerebral palsy 6. Scoliosis 7. Hospitalized last week with pneumonia/improved now 8. Fibrocystic breast changes nothing to biopsy at this time Plan: 1. Repeat bilateral mammogram with physician exam in 1 year 2. Medical management of medical conditions Cc: Dr. Padilla encounter 15 minutes, > 50% of time spent in planning and counselling
== END | disposition home or self-care (01) ==
LOC: WWCWWP 10:31
PROVIDERS: ATTEND Surgery
DX: Z53.9 Procedure and treatment not carried out, unspecified reason (principal)

== ENCOUNTER → 2021-02-27 | Outpatient (CLI) | payer MEDICARE, OTHER ==
[2021-02-27 13:21] VITALS: BP 151/83; PULSE 64; RESP 16; TEMP 97.8
== END | disposition home or self-care (01) ==
LOC: PROCWHC3 12:56
PROVIDERS: ATTEND Internal Medicine
DX: M81.0 Age-related osteoporosis without current pathological fracture (principal)
CPT/HCPCS: 96372; J0897

== ENCOUNTER → 2021-09-01 | Outpatient (CLI) | payer MEDICARE, OTHER ==
--- NOTE | 2021-09-04 13:57 | MM ---
Reason for exam: screening (asymptomatic). Last mammogram was performed 1 year ago. History: Patient is postmenopausal, has history of high-risk lesion on a previous biopsy at age 73, and is nulliparous. Family history of breast cancer in sister at age 66. High risk MG pre op needle loc RT of the right breast, December 23, 2018. Physical Findings: A clinical breast exam by your physician is recommended on an annual basis and results should be correlated with mammographic findings. MG 3D Screening Mammo W/Cad Bilateral CC, MLO, and XCCL view(s) were taken. Prior study comparison: August 29, 2020, bilateral MG 3d screening mammo w/cad. August 25, 2019, left breast MG 3d diag mammo w/cad LT. July 13, 2019, right breast MG 3d diag mammo w/cad RT. August 22, 2018, bilateral MG 3d screening mammo w/cad. There are scattered fibroglandular densities. Post excisional changes right breast. No significant changes when compared with prior studies. ASSESSMENT: Benign, BI-RAD 2 RECOMMENDATION: Routine screening mammogram of both breasts in 1 year.
== END | disposition home or self-care (01) ==
LOC: RADMAMWWP 12:42
PROVIDERS: ATTEND Surgery
DX: Z12.31 Encounter for screening mammogram for malignant neoplasm of breast (principal); Z80.3 Family history of malignant neoplasm of breast
CPT/HCPCS: 77063; 77067

== ENCOUNTER → 2021-09-01 | Outpatient (CLI) | payer MEDICARE, OTHER ==
[2021-09-01 12:44] VITALS: BP 159/81; PULSE 69; RESP 16; TEMP 97.6
== END ==
LOC: PROCWHC3 11:55
PROVIDERS: ATTEND Family Medicine
DX: M81.0 Age-related osteoporosis without current pathological fracture (principal); Z87.891 Personal history of nicotine dependence
CPT/HCPCS: 96372; J0897

== ENCOUNTER → 2021-09-08 | Outpatient (CLI) | payer MEDICARE, OTHER ==
[2021-09-08 14:19] VITALS: BP 138/79; PULSE 56; RESP 16; TEMP 98.1
--- NOTE | 2021-09-08 14:31 | P.PN ---
Subjective Progress Note Date: 09/08/21 Principal diagnosis: Right breast atypical hyperplasia in past Fibrocystic breast changes Shantel is a 75-year-old white female who presented in 2017 with a mammographic abnormality noted in her right breast. Mammogram was done on 10181111. A new 5 mm group of right calcifications in the central inner breast were noted. No suspicious abnormalities on the left breast were noted. Additional views of the right breast were obtained which determined that the mi crocalcifications were indeterminant and a stereotactic core biopsy was recommended. Stereotactic core biopsy revealed atypia bordering on DCIS and resulted in a needle localization and an open biopsy on 12-23-18. Pathology revealed focal atypical hyperplasia, margins were negative. Her most recent bilateral mammogram was performed on . This was benign BIRADS 2. She does not have any lumps masses or nodules in her breasts for which she is concerned. Caffeine: One cup per day Nicotine: Negative Theophylline: Occasional Family history: 1. Breast cancer in a sister at age 66 Hormonal History: menarche: 12 : none menopause: 31 BCP: none hormones: none Past surgical history: Tonsil cataract Open biopsy of the right breast Past Medical History: 1. Leaking heart valve 2. GERD 3. Hypertension 4. High cholesterol 5. Cerebral palsy 6. Scoliosis 7. Hospitalized last year with pneumonia 8. hospitalized May 2021 difficulty swallowing a pill/stress resulted in increase in cardiac enzymes Social History: smoke: none alcohol: 2 wine/day drugs: Vicodin for back pain - Constitutional Constitutional: Denies chills, Denies fever - EENT Eyes: denies blurred vision, denies pain Ears: deny: decreased hearing, tinnitus Ears, nose, mouth and throat: Denies headache, Denies sore throat - Breasts Breasts: bilateral: as per HPI - Cardiovascular Comment: leaking valve (mitral valve prolapse) Cardiovascular: Reports high blood pressure - Respiratory Respiratory: Denies cough - Gastrointestinal Comment: PUD, GERD reflux Gastrointestinal: Denies abdominal pain, Denies diarrhea, Denies nausea, Denies vomiting - Genitourinary (Female) Genitourinary: Denies dysuria, Denies hematuria - Menstruation Menstruation: Reports postmenopausal - Musculoskeletal Comment: cerebral palsy - Integumentary Integumentary: Denies pruritus, Denies rash - Neurological Comment: arthritis Neurological: Reports numbness, Reports weakness - Psychiatric Psychiatric: Denies anxiety, Denies depression - Endocrine Endocrine: Denies fatigue, Denies weight change - Hematologic/Lymphatic Comment: aspirin - Allergic/Immunologic Allergic/Immunologic: Reports seasonal allergies Objective - Vital Signs Vital signs: Vital Signs Temp 98.1 F 09/08/21 14:14 Pulse 56 L 09/08/21 14:14 Resp 16 09/08/21 14:14 BP 138/79 09/08/21 14:14 Pulse Ox Intake & Output 09/07/21 09/08/21 09/08/21 18:59 06:59 18:59 Weight 55.792 kg - Constitutional General appearance: Present: cooperative - EENT Eyes: Present: EOMI ENT: Present: hearing grossly normal - Neck Neck: Present: normal ROM - Respiratory Respiratory: bilateral: CTA - Cardiovascular Heart sounds: normal: S1, S2 - Integumentary Integumentary: Present: normal turgor - Musculoskeletal Musculoskeletal Comment(s): marked scoliosis - Psychiatric Psychiatric: Present: A&O x's 3, appropriate affect, intact judgment & insight - Additional findings Additional findings: Breast Exam: 36DD Inspection: Bilateral grade 3 ptosis Palpation: Right breast: Multiple positional exam fibrocystic changes no dominant masses or nodules of concern Right axilla: No adenopathy of concern Left breast: Multiple positional exam fibrocystic changes no dominant masses or nodules of concern Left axilla: No adenopathy of concern Assessment and Plan Assessment: Impression: 1. Leaking heart valve 2. GERD 3. Hypertension 4. High cholesterol 5. Cerebral palsy 6. Scoliosis 7. Hospitalized last year with pneumonia 8. hospitalized May 2021 difficulty swallowing a pill/stress resulted in increase in cardiac enzymes 9. Fibrocystic breast changes Plan: 1. Repeat bilateral mammogram 1 year with physician exam at that time Cc: Dr. Carmen
== END ==
LOC: WWCWWP 13:41
PROVIDERS: ATTEND Surgery
DX: N60.11 Diffuse cystic mastopathy of right breast (principal); K21.9 Gastro-esophageal reflux disease without esophagitis; I10 Essential (primary) hypertension; E78.00 Pure hypercholesterolemia, unspecified; G80.9 Cerebral palsy, unspecified; M41.9 Scoliosis, unspecified; Z87.01 Personal history of pneumonia (recurrent); T82.03XA Leakage of heart valve prosthesis, initial encounter; Z88.8 Allergy status to other drugs, medicaments and biological substances; Z87.891 Personal history of nicotine dependence

== ENCOUNTER → 2022-02-28 | Outpatient (CLI) | payer MEDICARE, OTHER ==
[2022-02-28 12:42] VITALS: BP 146/87; PULSE 62; RESP 16; TEMP 97.7
== END ==
LOC: PROCWHC3 12:32
PROVIDERS: ATTEND Family Medicine
DX: M81.0 Age-related osteoporosis without current pathological fracture (principal); Z87.891 Personal history of nicotine dependence; Z88.8 Allergy status to other drugs, medicaments and biological substances
CPT/HCPCS: 96372; J0897

== ENCOUNTER → 2022-05-01 | Outpatient (CLI) | payer MEDICARE, OTHER ==
[2022-05-01 18:03] LABS: Basophils # (A) 0.03 X 10*3/uL (0.00-0.10); Basophils % (A) 0.7 %; Eosinophils # (A) 0.08 X 10*3/uL (0.04-0.35); Eosinophils % (A) 1.9 %; HCT 34.4 % (37.2-46.3); HGB 11.1 g/dL (12.0-15.0); Immature Grans, Automated 0.2 %; Lymphocytes # (A) 0.71 X 10*3/uL (0.90-5.00); Lymphocytes % (A) 17.3 %; MCH 32.6 pg (27.0-32.0); MCHC 32.3 g/dL (32.0-37.0); MCV 100.9 fL (80.0-97.0); Mean Platelet Volume 9.9 fL (9.5-12.2); Monocytes # (A) 0.52 X 10*3/uL (0.20-1.00); Monocytes % (A) 12.7 %; NRBC Per 100 WBC 0 /100 WBCS (0.0-0.0); Neutrophils # (A) 2.76 X 10*3/uL (1.80-7.70); Neutrophils % (A) 67.2 %; Platelet Count 219 X 10*3/uL (140-440); RBC 3.41 X 10*6/uL (4.10-5.20); RDW 12.7 % (11.5-14.5); WBC 4.11 X 10*3/uL (4.50-10.00)
[2022-05-01 18:19] LABS: ALT 19 U/L (8-44); AST 21 U/L (13-35); African American GFR (CKD) 84.6 (60.0-200.0); Albumin 4.3 g/dL (3.8-4.9); Albumin/Globulin Ratio 2.04 (1.60-3.17); Alkaline Phosphatase 66 U/L (41-126); BUN/Creat Ratio 12.11 Ratio (12.00-20.00); Blood Urea Nitrogen 9.6 mg/dL (9.0-27.0); Calcium 9.2 mg/dL (8.7-10.3); Carbon Dioxide 24.2 mmol/L (20.0-27.5); Chloride 98 mmol/L (96-109); Chol/HDL Ratio 2.47 Ratio; Globulin 2.1 g/dL (1.6-3.3); Glucose 96 mg/dL (70-110); Sodium 133 mmol/L (135-145); Total Protein 6.5 g/dL (6.2-8.2); VLDL Calculation 17.14 mg/dL (5.00-40.00)
[2022-05-01 18:24] LABS: Erythrocyte Sedimentation Rate 3 mm/Hr (0-30)
== END | disposition home or self-care (01) ==
LOC: LABWHC1 11:45
PROVIDERS: ATTEND Family Medicine
DX: E78.5 Hyperlipidemia, unspecified (principal); R63.4 Abnormal weight loss
CPT/HCPCS: 36415; 80053; 80061; 84439; 84443; 85025; 85652

== ENCOUNTER → 2022-08-31 | Outpatient (CLI) | payer MEDICARE, OTHER ==
[2022-08-31 13:10] VITALS: BP 138/81; PULSE 60; RESP 16; TEMP 97.6
== END | disposition home or self-care (01) ==
LOC: PROCWHC3 12:56
PROVIDERS: ATTEND Family Medicine
DX: M81.0 Age-related osteoporosis without current pathological fracture (principal)
CPT/HCPCS: 96372; J0897

== ENCOUNTER → 2022-09-03 | Outpatient (CLI) | payer MEDICARE, OTHER ==
--- NOTE | 2022-09-03 11:52 | MM ---
Reason for Exam: Screening (asymptomatic). Last screening mammogram was performed 12 month(s) ago. Patient History: Menarche at age 12. Patient has no children. Postmenopausal. Patient used Estrogen and Progesterone for 5 years. 12/23/2018, High risk Core Biopsy on the right side. Sister had breast cancer, age 66. Risk Values: Mariama 5 year model risk: 4.5%. NCI Lifetime model risk: 9.5%. Prior Study Comparison: 08/17/2002 Screening Mammogram, [place] [facility]. 03/28/2016 Bilateral Screening Mammogram, [facility]. 08/22/2018 Bilateral Screening Mammogram, [facility]. 07/13/2019 Right Diagnostic Mammogram, [facility]. 08/25/2019 Left Diagnostic Mammogram, [facility]. 08/29/2020 Bilateral Screening Mammogram, [facility]. 09/01/2021 Bilateral Screening Mammogram, [facility]. Tissue Density: The breast tissue is heterogeneously dense. This may lower the sensitivity of mammography. Findings: Analyzed By CAD. Faint microcalcifications far posterior lateral right CC view may be new. Further magnification views recommended to better characterize. Postexcisional changes right breast for prior high risk lesion. Benign oil cyst calcifications on the left. Otherwise, no significant change. Overall Assessment: Incomplete: need additional imaging evaluation, BI-RAD 0 Management: Diagnostic Mammogram of the right breast. [facility] will attempt to contact patient to return for supplemental views and ultrasound if indicated. Electronically signed and approved by: Brianna Harris M.D. Radiologist
--- NOTE | 2022-09-03 12:18 | MM ---
Reason for Exam: Additional evaluation requested from abnormal screening. Last screening mammogram was performed 12 month(s) ago. Patient History: Menarche at age 12. Patient has no children. Postmenopausal. Patient used Estrogen and Progesterone for 5 years. 12/23/2018, High risk Core Biopsy on the right side. Sister had breast cancer, age 66. Risk Values: Mariama 5 year model risk: 4.5%. NCI Lifetime model risk: 9.5%. Prior Study Comparison: 08/17/2002 Screening Mammogram, [place] [facility]. 03/29/2016 Right Diagnostic Mammogram, [facility]. 10/08/2016 Right Diagnostic Mammogram, [facility]. 08/22/2018 Bilateral Screening Mammogram, [facility]. 08/29/2018 Right Diagnostic Mammogram, [facility]. 07/13/2019 Right Diagnostic Mammogram, [facility]. 08/25/2019 Left Diagnostic Mammogram, [facility]. 08/29/2020 Bilateral Screening Mammogram, [facility]. 09/01/2021 Bilateral Screening Mammogram, [facility]. Tissue Density: Right: The breast tissue is heterogeneously dense. This may lower the sensitivity of mammography. Findings: Analyzed By CAD. High risk postexcisional changes redemonstrated on the right. Some faint, benign vascular calcifications upper outer quadrant right breast are slightly increased. Otherwise, no significant change from prior exams. Overall Assessment: Benign, BI-RAD 2 Management: Screening Mammogram of both breasts in 1 year. 1. Patient should continue monthly self breast exams. 2. A clinical breast exam by your physician is recommended on an annual basis. 3. This exam should not preclude additional follow-up of suspicious palpable abnormalities. Results were given to the patient verbally at the time of exam. Electronically signed and approved by: Brianna Harris M.D. Radiologist
== END | disposition home or self-care (01) ==
LOC: RADMAMWWP 11:09
PROVIDERS: ATTEND Surgery
DX: Z12.31 Encounter for screening mammogram for malignant neoplasm of breast (principal); R92.8 Other abnormal and inconclusive findings on diagnostic imaging of breast; Z78.0 Asymptomatic menopausal state; Z80.3 Family history of malignant neoplasm of breast
CPT/HCPCS: 77067; 77065; 77063; G0279; 77061

== ENCOUNTER → 2022-09-14 | Outpatient (CLI) | payer MEDICARE, OTHER ==
[2022-09-14 12:16] VITALS: BP 147/86; PULSE 59; RESP 17; TEMP 97.6
--- NOTE | 2022-09-14 12:32 | P.PN ---
Subjective Progress Note Date: 09/14/22 Principal diagnosis: atypical hyperplasia right breast Right breast atypical hyperplasia in past Fibrocystic breast changes Shantel is a 76-year-old white female who presented in 2017 with a mammographic abnormality noted in her right breast. Mammogram was done on 10181111. A new 5 mm group of right calcifications in the central inner breast were noted. No suspicious abnormalities on the left breast were noted. Additional views of the right breast were obtained which determined that the microcalcifications were indeterminant and a stereotactic core biopsy was recommended. Stereotactic core biopsy revealed atypia bordering on DCIS and resulted in a needle localization and an open biopsy on 12-23-18. Pathology revealed focal atypical hyperplasia, margins were negative. Her most recent bilateral mammogram was performed on 09-03-22. This was benign BIRADS 2. She does not have any lumps masses or nodules in her breasts for which she is concerned. Caffeine: One cup per day Nicotine: Negative Theophylline: Occasional Family history: 1. Breast cancer in a sister at age 66 Hormonal History: menarche: 12 : none menopause: 31 BCP: none hormones: none Past surgical history: Tonsil cataract Open biopsy of the right breast Past Medical History: 1. Leaking heart valve 2. GERD 3. Hypertension 4. High cholesterol 5. Cerebral palsy 6. Scoliosis 7. Hospitalized last year with pneumonia 8. hospitalized May 2021 difficulty swallowing a pill/stress resulted in increase in cardiac enzymes Social History: smoke: none alcohol: 2 wine/day drugs: Vicodin for back pain - Constitutional Constitutional: Denies chills, Denies fever - EENT Eyes: denies blurred vision, denies pain Ears: deny: decreased hearing, tinnitus Ears, nose, mouth and throat: Denies headache, Denies sore throat - Breasts Breasts: bilateral: as per HPI - Cardiovascular Comment: leaking valve (mitral valve prolapse) Cardiovascular: Reports high blood pressure - Respiratory Respiratory: Denies cough - Gastrointestinal Comment: PUD, GERD reflux Gastrointestinal: Denies abdominal pain, Denies diarrhea, Denies nausea, Denies vomiting - Genitourinary (Female) Genitourinary: Denies dysuria, Denies hematuria - Menstruation Menstruation: Reports postmenopausal - Musculoskeletal Comment: cerebral palsy - Integumentary Integumentary: Denies pruritus, Denies rash - Neurological Comment: arthritis Neurological: Reports numbness, Reports weakness - Psychiatric Psychiatric: Denies anxiety, Denies depression - Endocrine Endocrine: Denies fatigue, Denies weight change - Hematologic/Lymphatic Comment: aspirin - Allergic/Immunologic Allergic/Immunologic: Reports seasonal allergies Objective - Vital Signs Vital signs: Vital Signs Temp 97.6 F 09/14/22 12:14 Pulse 59 L 09/14/22 12:14 Resp 17 09/14/22 12:14 BP 147/86 09/14/22 12:14 Pulse Ox 97 09/14/22 12:14 FiO2 Intake & Output 09/13/22 09/14/22 09/14/22 18:59 06:59 18:59 Weight 45.813 kg - Constitutional General appearance: Present: cooperative - EENT Eyes: Present: EOMI ENT: Present: hearing grossly normal - Neck Neck: Present: normal ROM - Respiratory Respiratory: bilateral: CTA - Cardiovascular Heart sounds: normal: S1, S2 Abnormal Heart Sounds: Present: systolic murmur - Integumentary Integumentary: Present: normal turgor - Musculoskeletal Musculoskeletal Comment(s): kyphosis/ cerebral palsy - Psychiatric Psychiatric: Present: A&O x's 3, appropriate affect, intact judgment & insight - Additional findings Additional findings: Breast Exam: BRA: 36C/D inspection: Bilateral grade 3 ptosis Palpation: Right breast: Multiple positional exam fibrocystic changes no dominant masses or nodules of concern Right axilla: No adenopathy of concern Left breast: Multiple positional exam fibrocystic changes no dominant masses or nodules of concern Left axilla: No adenopathy of concern Assessment and Plan Assessment: Impression: 1. Leaking heart valve 2. GERD 3. Hypertension 4. High cholesterol 5. Cerebral palsy 6. Scoliosis 7. Hospitalized last year with pneumonia 8. hospitalized May 2021 difficulty swallowing a pill/stress resulted in increase in cardiac enzymes 9. Fibrocystic breast changes Plan: Bilateral mammogram 1 year with physician exam at that time CC: Dr. Tootie Rush
== END | disposition home or self-care (01) ==
LOC: WWCWWP 11:36
PROVIDERS: ATTEND Surgery
DX: Z53.9 Procedure and treatment not carried out, unspecified reason (principal)

== ENCOUNTER → 2023-05-03 | Outpatient (CLI) | payer MEDICARE, OTHER ==
[2023-05-03 13:52] VITALS: BP 106/65; PULSE 50; RESP 16; TEMP 97.3
== END ==
LOC: PROCWHC3 13:24
PROVIDERS: ATTEND Physician Assistant
DX: M81.0 Age-related osteoporosis without current pathological fracture (principal)
CPT/HCPCS: 96372; J0897

== ENCOUNTER → 2023-09-04 | Outpatient (CLI) | payer MEDICARE, OTHER ==
--- NOTE | 2023-09-04 13:45 | MM ---
Reason for Exam: Screening (asymptomatic). Last mammogram was performed 1 year(s) and 1 month(s) ago. Patient History: Menarche at age 12. Patient has no children. Postmenopausal. Patient used Estrogen and Progesterone for 5 years. 12/23/2018, High risk Core Biopsy on the right side. Sister had breast cancer, age 66. Risk Values: Mariama 5 year model risk: 4.5%. NCI Lifetime model risk: 8.9%. Prior Study Comparison: 09/01/2021 Bilateral Screening Mammogram, [facility]. 09/03/2022 Right MG 3D work up w/cad RT, [facility]. 09/03/2022 Bilateral MG 3D screening mammo w/cad, [facility]. Tissue Density: The breast tissue is heterogeneously dense. This may lower the sensitivity of mammography. Findings: Analyzed By CAD. There is no suspicious group of microcalcifications or new suspicious mass in either breast. Postsurgical changes demonstrated in the right breast again. Benign calcifications within both breasts. Overall Assessment: Benign, BI-RAD 2 Management: Screening Mammogram of both breasts in 1 year. A clinical breast exam by your physician is recommended on an annual basis and results should be correlated with mammographic findings. Note on Mariama scores and lifetime risk: 1. A Mariama score greater than 3% is considered moderate risk. If this is the case, consider specialist referral to assess eligibility for a risk reducing agent. If overall lifetime risk for the development of breast cancer is 20% or higher, the patient may qualify for future screening with alternating mammogram and breast MRI. Electronically signed and approved by: Sharath Jaramillo D.O.
== END | disposition home or self-care (01) ==
LOC: RADMAMWWP 09:56
PROVIDERS: ATTEND Surgery
DX: Z12.31 Encounter for screening mammogram for malignant neoplasm of breast (principal); Z78.0 Asymptomatic menopausal state; Z80.3 Family history of malignant neoplasm of breast
CPT/HCPCS: 77063; 77067

== ENCOUNTER → 2023-09-12 | Outpatient (CLI) | payer MEDICARE, OTHER ==
--- NOTE | 2023-09-12 12:53 | P.PN ---
Subjective Progress Note Date: 09/12/23 Subjective Progress Note Date: 09-12-23 Principal diagnosis: atypical hyperplasia right breast Fibrocystic breast changes Shantel is a 77-year-old white female who presented in 2017 with a mammographic abnormality noted in her right breast. Mammogram was done on 10181111. A new 5 mm group of right calcifications in the central inner breast were noted. No suspicious abnormalities on the left breast were noted. Jose Alberto tional views of the right breast were obtained which determined that the microcalcifications were indeterminant and a stereotactic core biopsy was recommended. Stereotactic core biopsy revealed atypia bordering on DCIS and resulted in a needle localization and an open biopsy on 12-23-18. Pathology revealed focal atypical hyperplasia, margins were negative. Her most recent bilateral mammogram was performed on 09-04-23. This was benign BIRADS 2. She does not have any lumps masses or nodules in her breasts for which she is concerned. Mariama Risk 5 year:4.5% lifetime risk: 8.9% Caffeine: One cup per day Nicotine: Negative Theophylline: Occasional Family history: 1. Breast cancer in a sister at age 66 Hormonal History: menarche: 12 : none menopause: 31 BCP: none hormones: none Past surgical history: Tonsil cataract Open biopsy of the right breast Past Medical History: 1. Leaking heart valve 2. GERD 3. Hypertension 4. High cholesterol 5. Cerebral palsy 6. Scoliosis 7. Hospitalized last year with pneumonia 8. hospitalized May 2021 difficulty swallowing a pill/stress resulted in increase in cardiac enzymes Social History: smoke: none alcohol: 2 wine/day drugs: Vicodin for back pain - Constitutional Constitutional: Denies chills, Denies fever - EENT Eyes: denies blurred vision, denies pain Ears: deny: decreased hearing, tinnitus Ears, nose, mouth and throat: Denies headache, Denies sore throat - Breasts Breasts: bilateral: as per HPI - Cardiovascular Comment: leaking valve (mitral valve prolapse) Cardiovascular: Reports high blood pressure - Respiratory Respiratory: Denies cough - Gastrointestinal Comment: PUD, GERD reflux Gastrointestinal: Denies abdominal pain, Denies diarrhea, Denies nausea, Denies vomiting - Genitourinary (Female) Genitourinary: Denies dysuria, Denies hematuria - Menstruation Menstruation: Reports postmenopausal - Musculoskeletal Comment: cerebral palsy - Integumentary Integumentary: Denies pruritus, Denies rash - Neurological Comment: arthritis Neurological: Reports numbness, Reports weakness - Psychiatric Psychiatric: Denies anxiety, Denies depression - Endocrine Endocrine: Denies fatigue, Denies weight change - Hematologic/Lymphatic Comment: aspirin - Allergic/Immunologic Allergic/Immunologic: Reports seasonal allergies Objective - Constitutional General appearance: Present: cooperative - EENT Eyes: Present: EOMI ENT: Present: hearing grossly normal - Neck Neck: Present: normal ROM - Respiratory Details: scoliosis Respiratory: bilateral: CTA - Cardiovascular Heart sounds: normal: S1, S2 - Integumentary Integumentary: Present: normal turgor - Musculoskeletal Musculoskeletal Comment(s): in a wheel chair - Additional findings Additional findings: Breast Exam: BRA: 36C/D inspection: Bilateral grade 3 ptosis Palpation: Right breast: exam sitting up fibrocystic changes no dominant masses or nodules of concern Right axilla: No adenopathy of concern Left breast: exam sitting up fibrocystic changes no dominant masses or nodules of concern Left axilla: No adenopathy of concern Assessment and Plan Assessment: Impression: 1. Leaking heart valve 2. GERD 3. Hypertension 4. High cholesterol 5. Cerebral palsy 6. Scoliosis 7. Hospitalized last year with pneumonia 8. hospitalized May 2021 difficulty swallowing a pill/stress resulted in increase in cardiac enzymes 9. Fibrocystic breast changes Plan: Bilateral mammogram 1 year; September 2024 with physician exam at that time CC: Dr. Tootie Rush
[2023-09-12 13:12] VITALS: BP 134/83; PULSE 81; RESP 16; TEMP 98.1
== END | disposition home or self-care (01) ==
LOC: WWCWWP 12:33
PROVIDERS: ATTEND Surgery
DX: N60.11 Diffuse cystic mastopathy of right breast (principal); N60.91 Unspecified benign mammary dysplasia of right breast; K21.9 Gastro-esophageal reflux disease without esophagitis; I10 Essential (primary) hypertension; G80.9 Cerebral palsy, unspecified; M41.9 Scoliosis, unspecified; E78.00 Pure hypercholesterolemia, unspecified; I34.1 Nonrheumatic mitral (valve) prolapse; Z78.0 Asymptomatic menopausal state; Z80.3 Family history of malignant neoplasm of breast; Z88.8 Allergy status to other drugs, medicaments and biological substances; Z79.899 Other long term (current) drug therapy; Z79.891 Long term (current) use of opiate analgesic

== ENCOUNTER → 2023-11-05 | Outpatient (CLI) | payer MEDICARE, OTHER ==
[2023-11-05 13:07] VITALS: BP 128/82; PULSE 56; RESP 16; TEMP 97.5
== END ==
LOC: PROCWHC3 12:49
PROVIDERS: ATTEND Physician Assistant
DX: M81.0 Age-related osteoporosis without current pathological fracture (principal)
CPT/HCPCS: 96372; J0897

== ENCOUNTER → 2024-08-24 | Outpatient (CLI) | payer MEDICARE, OTHER ==
[2024-08-24] MEDS: DENOSUMAB 60 MG/ML 1 ML SYRINGE SQ NR (14:42)
[2024-08-24 14:54] VITALS: BP 168/98; PULSE 66; RESP 16; TEMP 97.6
== END ==
LOC: PROCWHC3 14:39
PROVIDERS: ATTEND Physician Assistant
DX: M81.0 Age-related osteoporosis without current pathological fracture (principal)
CPT/HCPCS: 96372

== ENCOUNTER → 2025-02-23 | Outpatient (CLI) | payer MEDICARE, OTHER ==
[2025-02-23 14:15] VITALS: BP 150/81; PULSE 66; RESP 18; TEMP 97.4
[2025-02-23] MEDS: DENOSUMAB 60 MG/ML 1 ML SYRINGE SQ NR (14:15)
== END ==
LOC: PROCWHC3 14:02
PROVIDERS: ATTEND Physician Assistant
DX: M81.0 Age-related osteoporosis without current pathological fracture (principal)
CPT/HCPCS: 96372; J0897